=== PATIENT | male | born 1940 | race Caucasian/White ===

== ENCOUNTER 2024-06-11 14:06 | Outpatient (AMB) | payer MEDICARE, SELFPAY ==
--- NOTE | 2024-06-11 14:09 | MHC.PC.OV ---
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 sleep study for cpap machine Emergency Dispatcher Required: No Allergies No Known Allergies Allergy (Verified 06/11/24 14:13) Tobacco use date assessed: 06/11/24 Fall risk assessment: 2 + Falls in past year Last assessed Fall Risk: 06/11/24 Dental Screening Dental Screen Date: 06/11/24 Did you have a dental visit in the last 12 months?: No Did you have a dental problem in the last 6 months where you did not have access to dental care?: No Was dental information given to patient?: Patient declined HPI HPI Comments History of Present Illness Details This is an 83-year-old male with a past medical history of PVD, CVA at age 50 and age 82, status post CABG and stent to the left circumflex artery, CAD, uncontrolled type 2 diabetes, hypertension, hyperlipidemia, sinus bradycardia, anxiety and hypomagnesemia presenting to establish care. He transferred from my practice at [facility]. He is accompanied by his , Angela. Type 2 diabetes-using CGM. Average glucose 152. One low in the past 2 weeks on 06/15 at 59. He didn't have any symptoms and had just eaten so he does not think it was accurate. Glucose readings can sometimes be higher in the evening. Overall blood sugars have been improving since Trulicity was increased. Hemoglobin A1c 6.3% 01/27/2024. He was prescribed Ozempic, but it was too expensive. Currently on metformin, glipizide and Trulicity. Up-to-date eye exam-Dr. Hoff. + Microalbuminuria, + CAD, + PVD. Cardiovascular -followed by Cardiology, Dr. Valdez. Current regimen is aspirin, atorvastatin, Plavix, amlodipine, lisinopril. Beta-isiah discontinued due to bradycardia that was evaluated by Cardiology. Seen by Dr. Langford and scheduled for pacemaker implantation 06/23/2024. He has fatigue and dyspnea on exertion. Cardiology also did a stress test recently. He denies chest pain or leg swelling. 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 He did physical therapy. Anxiety-taking fluoxetine 20 mg daily. Hypomagnesemia seen by Nephrology. Magnesium dosing changed on 02/21/2024 to 3 tablets twice daily because patient was forgetting his noon dose. He is taking the Magnesium 2 tablets in the morning and 1 or 2 in the afternoon or evening. He is wondering if magnesium has improved since blood glucose is better regulated now. ROS: Constitutional: No unexplained weight loss, fever, chills, fatigue or night sweats. Cardiovascular: No chest pain, chest pressure or chest discomfort. No palpitations or pedal edema. Neurologic: No headache, dizziness, syncope Physical exam: Constitutional: Alert, in no distress. Head: Normocephalic. Eyes: Pupils are equal, round and reactive to light. Extraocular muscles intact. Neck: Supple, Full range of motion. No lymphadenopathy. Respiratory: Clear to auscultation. Cardiovascular: S1 S2 regular. No murmur Extremities: Warm and well perfused. No clubbing, cyanosis or edema. [facility] Medical History (Updated 06/11/24 @ 14:41 by Fabienne Leal CMA) Shingles Osteoporosis Arthritis Heart disease Hypercholesteremia HTN (hypertension) Type 2 diabetes mellitus with renal manifestations Thoracic aortic aneurysm Peripheral vascular disease Mixed sleep apnea Microalbuminuria Hypomagnesemia Essential hypertension Pure hypercholesterolemia History of CVA in adulthood Bilateral hip pain Hearing loss Chronic anemia Coronary artery disease Bradycardia Bilateral knee pain Generalized anxiety disorder Surgical History (Updated 06/11/24 @ 10:56 by EVA Romeo) S/P AAA repair using straight graft History of carotid endarterectomy Hx of CABG S/P coronary artery stent placement History of cardiac catheterization History of angioplasty of peripheral vessel Family History (Updated 06/11/24 @ 14:26 by Fabienne Leal CMA) Sister Lung cancer Stroke Brother Stroke Social History (Updated 06/11/24 @ 14:24 by Fabienne Leal CMA) Housing: House Patient Tobacco Use Status: Never used Tobacco e-Cigarette/Vaping Use: Never Used Second Hand Smoke Exposure: No service: Yes Current occupational status: retired Current occupational exposures/hazards: No Cognitive needs: No Hearing needs: Yes Vision needs: Yes Questionnaire PHQ-9 Over the last 2 weeks, how often have you been bothered by any of the following problems? 1. Little interest or pleasure in doing things: not at all 2. Feeling down, depressed, or hopeless: not at all 3. Trouble falling or staying asleep, or sleeping too much: not at all 4. Feeling tired or having little energy: several days 5. Poor appetite or overeating: not at all 6. Feeling bad about yourself - or that you are a failure or have let yourself or your family down: not at all 7. Trouble concentrating on things, such as reading the newspaper or watching television: not at all 8. Moving or speaking so slowly that other people could have noticed. Or the opposite - being so fidgety or restless that you have been moving around a lot more than usual: not at all 9. Thoughts that you would be better off or of hurting yourself in some way: not at all Total score: 1 Depression Screening Interpretation: Negative Depression Screening Done: Yes 58242 - PHQ-9 Billing: Yes Source: Developed by Drs. Tommy Ozuna, Roseanne Bales, Arnold Ramos and colleagues, with an educational lenin from [employer]. Thrive Questionnaire Date Thrive assessed: 06/11/24 I am a: Patient What is your living situation today?: I have a steady place to live Within the past 12 months, did you worry whether your food would run out before you got money to buy more?: Never true Do you have trouble paying for medicines?: No Do you have trouble getting transportation to medical appointments?: No Do you have trouble paying your heating and electricity bill?: No Do you have trouble taking care of your child, family member or friend?: No Do you have trouble with day-to-day activities such as bathing, preparing meals, shopping, managing finances, etc.?: No Are you currently unemployed and looking for a job?: No Are you interested in more education?: No Please select the resources that you would like help with: None Currently or been in a relationship where the following occur: No concerns reported THRIVE Score: 0 AUDIT C Alcohol Use Questionnaire (AUDIT-C) 1. How often do you have a drink containing alcohol?: Monthly or less 2. How many drinks containing alcohol do you have on a typical day when you are drinking?: 3 or 4 3. How often do you have six or more drinks on one occasion?: Weekly Total Score: 5 Physical exam (Primary Care) Vital Signs: Last Vital Signs Temp 97.6 F 06/11/24 14:28 Pulse 46 L 06/11/24 14:28 BP 112/56 L 06/11/24 14:45 Pulse Ox 97 06/11/24 14:28 Oxygen Delivery Method Room Air 06/11/24 14:28 BMI result Body Mass Index 30.3 Tobacco/Smoking Status: Tobacco use Status Tobacco use date assessed 06/11/24 06/11/24 14:31 Patient Tobacco Use Status Never used Tobacco 06/11/24 14:31 e-Cigarette/Vaping Use Never Used 06/11/24 14:31 PHQ-9: PHQ-9 Score PHQ-9: Total score 1 06/11/24 14:37 Depression Screening Interpretation: Negative Thrive Assessment: Date of Thrive Assessment Date Thrive assessed 06/11/24 06/11/24 14:37 Currently or been in a relationship where the following occur: No concerns reported Assessment and Plan Assessment & Plan (1) Type 2 diabetes mellitus with renal manifestations: Code(s): E11.29 - Type 2 diabetes mellitus with other diabetic kidney complication Qualifiers: Diabetes mellitus complication detail: with diabetic microalbuminuria Diabetes mellitus fpc insulin use: without intermediate project manager use Qualified Code(s): E11.29 - Type 2 diabetes mellitus with other diabetic kidney complication; R80.9 - Proteinuria, unspecified (2) Microalbuminuria: Code(s): R80.9 - Proteinuria, unspecified (3) Essential hypertension: Code(s): I10 - Essential (primary) hypertension (4) Pure hypercholesterolemia: Code(s): E78.00 - Pure hypercholesterolemia, unspecified (5) History of CVA in adulthood: Code(s): Z86.73 - Personal history of transient ischemic attack (TIA), and cerebral infarction without residual deficits (6) Coronary artery disease: Code(s): I25.10 - Atherosclerotic heart disease of [place] coronary artery without angina pectoris Qualifiers: Associated angina: without angina Coronary Disease-Associated Artery/Lesion type: [place] artery [place] vs. transplanted heart: [place] heart Qualified Code(s): I25.10 - Atherosclerotic heart disease of [place] coronary artery without angina pectoris (7) Generalized anxiety disorder: Code(s): F41.1 - Generalized anxiety disorder (8) Hypomagnesemia: Code(s): E83.42 - Hypomagnesemia (9) Mixed sleep apnea: Code(s): G47.39 - Other sleep apnea Plan: Type 2 diabetes with renal manifestation Continue current regimen and check labs. If CGM is giving a low reading advised patient to check blood glucose if he is asymptomatic to confirm. If blood glucose is also low treat hypoglycemia. If you experience low blood sugar, treat this by eating a chewable fruit candy like skittles or jelly beans (about 8 pieces), 4 ounces (1/2 cup) of fruit juice (not diet), 1 tablespoon of honey or 3-4 glucose tablets (prescribed). If your blood sugar is under 50, take double the amount of one of the above. Recheck your blood sugar in 15 minutes. Microalbuminuria Continue TEN inhibitor for renal protection. Hypertension Controlled. Continue current regimen. Hyperlipidemia Check lipid profile. LDL goal less than 70. History of CVA in adulthood Modify risk factors. See above. Coronary artery disease, bradycardia Continue current medications Pacemaker implantation scheduled for 06/23/2024. Generalized anxiety disorder Stable. Continue SSRI. Hypomagnesemia Seen by Nephrology. Continue magnesium supplementation. Check magnesium. Mixed sleep apnea He is having another sleep study after surgery. Follow up in 3 months Orders: Orders Lipid Panel Today E11.29 - Type 2 diabetes mellitus with other diabetic kidney complication, E78.00 - Pure hypercholesterolemia, unspecified, E83.42 - Hypomagnesemia, I10 - Essential (primary) hypertension, R80.9 - Proteinuria, unspecified, Z86.73 - Personal history of transient ischemic attack (TIA), and cerebral infarction without residual deficits Basic Metabolic Panel Today E11.29 - Type 2 diabetes mellitus with other diabetic kidney complication, E78.00 - Pure hypercholesterolemia, unspecified, E83.42 - Hypomagnesemia, I10 - Essential (primary) hypertension, R80.9 - Proteinuria, unspecified, Z86.73 - Personal history of transient ischemic attack (TIA), and cerebral infarction without residual deficits Hemoglobin A1c Today E11.29 - Type 2 diabetes mellitus with other diabetic kidney complication, E78.00 - Pure hypercholesterolemia, unspecified, E83.42 - Hypomagnesemia, I10 - Essential (primary) hypertension, R80.9 - Proteinuria, unspecified, Z86.73 - Personal history of transient ischemic attack (TIA), and cerebral infarction without residual deficits Magnesium Today E11.29 - Type 2 diabetes mellitus with other diabetic kidney complication, E78.00 - Pure hypercholesterolemia, unspecified, E83.42 - Hypomagnesemia, I10 - Essential (primary) hypertension, R80.9 - Proteinuria, unspecified, Z86.73 - Personal history of transient ischemic attack (TIA), and cerebral infarction without residual deficits Complete Blood Count no Diff Today I73.9 - Peripheral vascular disease, unspecified Medications: New magnesium chloride 128 mg (2 x 64 mg) PO BID 90 days 360 tabs 1RF glucose take 3-4 tabs orally every 15 minutes PRN; until symptoms of low blood sugar are controlled 30 tabs 0RF hypoglycemia Coding Level of Care Code Est Pt Level 4 (40993) Complex EM visit Add On G2211 Diagnoses Type 2 diabetes mellitus with diabetic microalbuminuria, without long-term current use of insulin E11.29; R80.9 Diabetes mellitus complication detail: with diabetic microalbuminuria Diabetes mellitus intermediate project manager insulin use: without intermediate project manager use Microalbuminuria R80.9 Essential hypertension I10 Pure hypercholesterolemia E78.00 History of CVA in adulthood Z86.73 Coronary artery disease involving [place] coronary artery of [place] heart without angina pectoris I25.10 Associated angina: without angina Coronary Disease-Associated Artery/Lesion type: [place] artery [place] vs. transplanted heart: [place] heart Generalized anxiety disorder F41.1 Hypomagnesemia E83.42 Mixed sleep apnea G47.39
[2024-06-11 14:28] VITALS: BP 96/60; PULSE 46; TEMP 36.4; O2SAT 97; BMI 30.3
[2024-06-11 14:45] VITALS: BP 112/56
== END 2024-06-11 15:06 | disposition home or self-care (01) ==
LOC: HO.HMGFM 14:06
PROVIDERS: PCP Physician Assistant Medical; Visit Provider Physician Assistant Medical
DX: E11.29 Type 2 diabetes mellitus with other diabetic kidney complication (principal); R80.9 Proteinuria, unspecified; I10 Essential (primary) hypertension; E78.00 Pure hypercholesterolemia, unspecified; Z86.73 Personal history of transient ischemic attack (TIA), and cerebral infarction without residual deficits; I25.10 Atherosclerotic heart disease of native coronary artery without angina pectoris; F41.1 Generalized anxiety disorder; E83.42 Hypomagnesemia; G47.39 Other sleep apnea
CPT/HCPCS: 99204; 99214

== ENCOUNTER 2024-06-15 08:05 | Outpatient (REF) | payer BC, SELFPAY ==
[2024-06-15 11:34] LABS: Hematocrit 36.5 % (42.0-52.0); Hemoglobin 12.5 g/dl (14.0-18.0); Mean Corpuscular HGB Conc 34.2 g/dl (31.0-36.0); Mean Corpuscular Hemoglobin 31.8 pg (27.0-33.0); Mean Corpuscular Volume 92.9 fL (80.0-98.0); Mean Platelet Volume 10.9 fL (9.4-12.4); Platelet Count 176 X10*3/uL (160-400); Red Blood Count 3.93 X10*6/uL (4.60-5.80); Red Cell Distribution Width 11.9 % (11.0-16.0); White Blood Count 6.8 X10*3/uL (4.8-10.8)
[2024-06-15 11:40] LABS: Estimated Average Glucose 143 mg/dL; Hemoglobin A1c % 6.6 % (<6.0)
[2024-06-15 11:57] LABS: Prothrombin Time 11.8 SEC (11.1-13.3)
[2024-06-15 12:02] LABS: MANUAL DIFF FLAG NO
[2024-06-15 12:03] LABS: Basophils Absolute Auto 0.1 X10*3/uL (0.0-0.2); Basophils Percent Auto 0.9 % (0-2); Eosinophils Absolute Auto 0.3 X10*3/uL (0.0-0.4); Eosinophils Percent Auto 4.5 % (0-4); Imm Gran Abs Auto 0.02 X10*3/uL (0.00-0.03); Imm Gran Pct Auto 0.3 % (0.0-0.4); Lymphocytes Absolute Auto 1.5 X10*3/uL (1.2-4.9); Lymphocytes Percent Auto 21.5 % (20-40); Monocytes Absolute Auto 0.7 X10*3/uL (0.1-1.2); Neutrophils Absolute Auto 4.2 x10*3/uL (2.0-8.3); Neutrophils Percent Auto 62.8 % (45-73)
[2024-06-15 12:28] LABS: Anion Gap 11 (12-20); Blood Urea Nitrogen 15 mg/dL (9-16); Calcium 9.7 mg/dL (8.4-10.2); Carbon Dioxide 27 mmol/L (22-29); Chloride 107 mmol/L (96-108); Cholesterol 136 mg/dL (<200); Estimated Glomerular Filt Rate > 60; Glucose Random 137 mg/dL (60-115); HDL Cholesterol 55 mg/dL (>40); LDL Cholesterol Calculated 59 mg/dL (<100); Magnesium 1.7 mg/dL (1.6-2.6); Potassium 4.4 mmol/L (3.3-5.1); Sodium 141 mmol/L (135-145); Triglycerides 112 mg/dL (<150)
== END 2024-06-15 08:06 | disposition home or self-care (01) ==
LOC: HO.WFDLDS 08:05
PROVIDERS: Internal Medicine Cardiovascular Disease; Visit Provider Physician Assistant Medical
DX: E11.29 Type 2 diabetes mellitus with other diabetic kidney complication (principal); R80.9 Proteinuria, unspecified; I10 Essential (primary) hypertension; E78.00 Pure hypercholesterolemia, unspecified; Z86.73 Personal history of transient ischemic attack (TIA), and cerebral infarction without residual deficits; E83.42 Hypomagnesemia; I73.9 Peripheral vascular disease, unspecified; I49.5 Sick sinus syndrome
CPT/HCPCS: 36415; 80048; 80061; 83036; 83735; 85025; 85027; 85610

== ENCOUNTER 2024-08-24 10:23 | Outpatient (AMB) | payer BC, SELFPAY ==
--- NOTE | 2024-08-24 10:29 | A.OFFPC_ITS ---
Vital Signs 08/24/24 10:33 08/24/24 10:38 Height 5 ft 5.04 in Weight 188 lb 8 oz BMI 31.3 BP 116/40 L 119/56 L Blood Pressure Location Rt brachial Rt brachial Position Sitting Sitting Respiration 14 Pulse 61 Pulse Source Pulse Oximeter Temp 98.4 F Temp Source Temporal Artery Scan Pulse Oximetry (%) 94 Oxygen Delivery Method Room Air Intake Visit Reasons: 30 minutes complex follow up Intake Note: f/u for pacemaker and blood work orders Allergies No Known Allergies Allergy (Verified 08/24/24 10:30) Tobacco use date assessed: 06/11/24 Dental Screening Dental Screen Date: 06/11/24 HPI HPI Comments History of Present Illness Details This is an 84-year-old male with a past medical history of PVD, CVA at age 50 and age 82, status post CABG and stent to the left circumflex artery, CAD, type 2 diabetes, hypertension, hyperlipidemia, sinus bradycardia, anxiety and hypomagnesemia presenting for follow up. He is accompanied by his , Angela. Type 2 diabetes-using [employer], but he has not been scanning more than once per day usually. Average 14 day glucose 159. Hemoglobin A1c 6.6% 06/15/2024. He was prescribed Ozempic, but it was too expensive. Currently on metformin, glipizide and Trulicity. Up-to-date eye exam-Dr. Hoff. + Microalbuminuria, + CAD, + PVD. Glucose 188 this morning - ate rasinettes last night. He had a few episodes of hypoglycemia in the 60s during the past few months. This is usually in the afternoon when he's doing work outside. Treated by eating something sugary and felt better. Cardiovascular -followed by Cardiology, Dr. Valdez. Current regimen is aspirin, atorvastatin, Plavix, amlodipine, lisinopril. Beta-isiah discontinued due to bradycardia that was evaluated by Cardiology. S/p pacemaker implantation 06/2024. No complications per patient. He denies chest pain or leg swelling. Still fatigued easily. 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 He did physical therapy. Patient had a sleep study done after pacemaker implantation. He has a follow up with sleep Medicine at [facility] in September to review the results. Anxiety-taking fluoxetine 20 mg daily. Hypomagnesemia-Followed by [facility]. Patient takes magnesium chloride 2 x 64 mg tabs twice daily. I pointed out a scaly skin growth next to his right eye. He is unsure how long he has had it. He has been picking at it, and it regrows. He has a history of skin cancer. Patient states he has had Mohs procedure years ago. ROS: Constitutional: No unexplained weight loss, fever, chills or night sweats. Eyes: No vision changes Respiratory: No shortness of breath, cough or sputum production. Cardiovascular: No chest pain, chest pressure or chest discomfort. No palpitations or pedal edema. Gastrointestinal: No anorexia, nausea, vomiting or diarrhea. No abdominal pain or blood in stool. Neurologic: No headache, dizziness, syncope, unilateral weakness Hematologic/Lymphatics: No bleeding or bruising. No painful lymph nodes. Endocrine: No cold or heat intolerance. No polyuria or polydipsia. Physical exam: Constitutional: Alert, in no distress. Head: Normocephalic. Eyes: Pupils are equal, round and reactive to light. Extraocular muscles intact. Neck: Supple, Full range of motion. No lymphadenopathy. Respiratory: Clear to auscultation. Cardiovascular: S1 S2 regular. No murmur Extremities: Warm and well perfused. No clubbing, cyanosis or edema. Skin: 6 mm raised, scaly lesion on right adventism [facility] Medical History (Updated 08/24/24 @ 11:25 by EVA Romeo) Neoplasm of skin Shingles Osteoporosis Arthritis Heart disease Hypercholesteremia HTN (hypertension) Type 2 diabetes mellitus with renal manifestations Thoracic aortic aneurysm Peripheral vascular disease Mixed sleep apnea Microalbuminuria Hypomagnesemia Essential hypertension Pure hypercholesterolemia History of CVA in adulthood Bilateral hip pain Hearing loss Chronic anemia Coronary artery disease Bradycardia Bilateral knee pain Generalized anxiety disorder Surgical History (Updated 06/11/24 @ 10:56 by EVA Romeo) S/P AAA repair using straight graft History of carotid endarterectomy Hx of CABG S/P coronary artery stent placement History of cardiac catheterization History of angioplasty of peripheral vessel Family History (Updated 06/11/24 @ 14:26 by Fabienne Leal CMA) Sister Lung cancer Stroke Brother Stroke Social History (Updated 06/11/24 @ 14:24 by Fabienne Leal CMA) Housing: House Patient Tobacco Use Status: Never used Tobacco e-Cigarette/Vaping Use: Never Used Second Hand Smoke Exposure: No service: Yes Current occupational status: retired Current occupational exposures/hazards: No Cognitive needs: No Hearing needs: Yes Vision needs: Yes Questionnaire Thrive Questionnaire Date Thrive assessed: 06/11/24 Physical exam (Primary Care) Tobacco/Smoking Status: Tobacco use Status Tobacco use date assessed 06/11/24 06/11/24 14:31 Patient Tobacco Use Status Never used Tobacco 06/11/24 14:31 e-Cigarette/Vaping Use Never Used 06/11/24 14:31 Thrive Assessment: Date of Thrive Assessment Date Thrive assessed 06/11/24 06/11/24 14:37 Coding Level of Care Code Est Pt Level 5 (85709) Complex EM visit Add On G2211 Diagnoses Type 2 diabetes mellitus with diabetic microalbuminuria, without long-term current use of insulin E11.29; R80.9 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 transplanted heart: [place] heart Associated angina: without angina Chronic anemia D64.9 Mixed sleep apnea G47.39 Peripheral vascular disease I73.9 Neoplasm of skin D49.2 Time Spent (min) 48 Comment Reviewing chart, direct patient care, completing documentation Assessment & Plan Assessment & Plan (1) Type 2 diabetes mellitus with renal manifestations: Code(s): E11.29 - Type 2 diabetes mellitus with other diabetic kidney complication Category: Medical Qualifiers: Diabetes mellitus intermediate insulin use: without intermediate use Diabetes mellitus complication detail: with diabetic microalbuminuria Qualified Code(s): E11.29 - Type 2 diabetes mellitus with other diabetic kidney complication; R80.9 - Proteinuria, unspecified (2) Hypomagnesemia: Code(s): E83.42 - Hypomagnesemia Category: Medical (3) Essential hypertension: Code(s): I10 - Essential (primary) hypertension Category: Medical (4) Pure hypercholesterolemia: Code(s): E78.00 - Pure hypercholesterolemia, unspecified Category: Medical (5) Coronary artery disease: Code(s): I25.10 - Atherosclerotic heart disease of [place] coronary artery without angina pectoris Category: Medical Qualifiers: Coronary Disease-Associated Artery/Lesion type: [place] artery [place] vs. transplanted heart: [place] heart Associated angina: without angina Qualified Code(s): I25.10 - Atherosclerotic heart disease of [place] coronary artery without angina pectoris (6) Chronic anemia: Code(s): D64.9 - Anemia, unspecified Category: Medical (7) Mixed sleep apnea: Code(s): G47.39 - Other sleep apnea Category: Medical (8) Peripheral vascular disease: Code(s): I73.9 - Peripheral vascular disease, unspecified Category: Medical (9) Neoplasm of skin: Code(s): D49.2 - Neoplasm of unspecified behavior of bone, soft tissue, and skin Category: Medical Plan Type 2 diabetes with renal manifestation Continue current regimen and check labs. If you experience low blood sugar, treat this by eating a chewable fruit candy like skittles or jelly beans (about 8 pieces), 4 ounces (1/2 cup) of fruit juice (not diet), 1 tablespoon of honey or 3-4 glucose tablets (prescribed). If your blood sugar is under 50, take double the amount of one of the above. Recheck your blood sugar in 15 minutes. Microalbuminuria Continue TEN inhibitor for renal protection. Hypertension Controlled. Continue current regimen. Hyperlipidemia LDL at goal of less than 77/20 08/11. Continue atorvastatin 80 mg. History of CVA in adulthood We will continue to treat risk factors. Continue current medications. Coronary artery disease, bradycardia Continue current medications. Hypertension, diabetes and hyperlipidemia controlled. S/p pacemaker implantation. Generalized anxiety disorder Stable. Continue SSRI. Hypomagnesemia Seen by Nephrology. Continue magnesium supplementation. Check magnesium. Mixed sleep apnea Follow up with sleep medicine at [facility] in September. Chronic anemia Repeat CBC. Check iron , ferritin, B12 and folate. Skin neoplasm Referred to [facility]. The patient was instructed to call the office if they do not hear about scheduling the appointment after 2 weeks. Follow up in 3 months Orders: Orders Basic Metabolic Panel 09/15/24 D64.9 - Anemia, unspecified, E11.29 - Type 2 di abetes mellitus with other diabetic kidney complication, E83.42 - Hypomagnesemia, I10 - Essential (primary) hypertension, I73.9 - Peripheral vascular disease, unspecified, R80.9 - Proteinuria, unspecified IRON PROFILE 09/15/24 D64.9 - Anemia, unspecified, E11.29 - Type 2 diabetes mellitus with other diabetic kidney complication, E83.42 - Hypomagnesemia, I10 - Essential (primary) hypertension, I73.9 - Peripheral vascular disease, unspecified, R80.9 - Proteinuria, unspecified TSH reflex Free T4 Today E11.29 - Type 2 diabetes mellitus with other diabetic kidney complication, R80.9 - Proteinuria, unspecified Hemoglobin A1c 09/15/24 D64.9 - Anemia, unspecified, E11.29 - Type 2 diabetes mellitus with other diabetic kidney complication, E11.9 - Type 2 diabetes mellitus without complications, E83.42 - Hypomagnesemia, I10 - Essential (primary) hypertension, I73.9 - Peripheral vascular disease, unspecified, R80.9 - Proteinuria, unspecified Magnesium 09/15/24 D64.9 - Anemia, unspecified, E11.29 - Type 2 diabetes mellitus with other diabetic kidney complication, E83.42 - Hypomagnesemia, I10 - Essential (primary) hypertension, I73.9 - Peripheral vascular disease, unspecified, R80.9 - Proteinuria, unspecified Complete Blood Count Auto Diff 09/15/24 D64.9 - Anemia, unspecified, E11.29 - Type 2 diabetes mellitus with other diabetic kidney complication, E83.42 - Hypomagnesemia, I10 - Essential (primary) hypertension, I73.9 - Peripheral vascular disease, unspecified, R80.9 - Proteinuria, unspecified Ferritin 09/15/24 D64.9 - Anemia, unspecified, E11.29 - Type 2 diabetes mellitus with other diabetic kidney complication, E83.42 - Hypomagnesemia, I10 - Essential (primary) hypertension, I73.9 - Peripheral vascular disease, unspecified, R80.9 - Proteinuria, unspecified Vitamin B12 and Folate 09/15/24 D64.9 - Anemia, unspecified, E11.29 - Type 2 diabetes mellitus with other diabetic kidney complication, E83.42 - Hypomagnesemia, I10 - Essential (primary) hypertension, I73.9 - Peripheral vascular disease, unspecified, R80.9 - Proteinuria, unspecified Referrals Dermatology Referral D49.89 - Neoplasm of unspecified behavior of other specified sites
[2024-08-24 10:33] VITALS: BP 116/40; PULSE 61; RESP 14; TEMP 36.9; O2SAT 94; BMI 31.3
[2024-08-24 10:38] VITALS: BP 119/56
== END 2024-08-24 11:14 | disposition home or self-care (01) ==
PROVIDERS: PCP Physician Assistant Medical; Visit Provider Physician Assistant Medical
DX: E11.29 Type 2 diabetes mellitus with other diabetic kidney complication (principal); I73.9 Peripheral vascular disease, unspecified; R80.9 Proteinuria, unspecified; E83.42 Hypomagnesemia; I10 Essential (primary) hypertension; E78.00 Pure hypercholesterolemia, unspecified; I25.10 Atherosclerotic heart disease of native coronary artery without angina pectoris; D64.9 Anemia, unspecified; G47.39 Other sleep apnea; D49.2 Neoplasm of unspecified behavior of bone, soft tissue, and skin

== ENCOUNTER → 2024-08-24 10:23 | Outpatient (BNVA) | payer BC, SELFPAY | PROVIDERS: PCP Physician Assistant Medical; Visit Provider Physician Assistant Medical ==

== ENCOUNTER 2024-09-22 11:11 | Outpatient (REF) | payer BC, SELFPAY ==
[2024-09-22 14:23] LABS: MANUAL DIFF FLAG NO
[2024-09-22 14:40] LABS: Basophils Absolute Auto 0.1 X10*3/uL (0.0-0.2); Basophils Percent Auto 0.9 % (0-2); Eosinophils Absolute Auto 0.3 X10*3/uL (0.0-0.4); Eosinophils Percent Auto 4.3 % (0-4); Hemoglobin 12.2 g/dl (14.0-18.0); Imm Gran Abs Auto 0.01 X10*3/uL (0.00-0.03); Imm Gran Pct Auto 0.2 % (0.0-0.4); Lymphocytes Absolute Auto 1.3 X10*3/uL (1.2-4.9); Lymphocytes Percent Auto 21.7 % (20-40); Mean Corpuscular HGB Conc 34.9 g/dl (31.0-36.0); Mean Corpuscular Hemoglobin 32.3 pg (27.0-33.0); Mean Corpuscular Volume 92.6 fL (80.0-98.0); Mean Platelet Volume 10.7 fL (9.4-12.4); Monocytes Absolute Auto 0.7 X10*3/uL (0.1-1.2); Neutrophils Absolute Auto 3.5 x10*3/uL (2.0-8.3); Neutrophils Percent Auto 60.9 % (45-73); Platelet Count 147 X10*3/uL (160-400); Red Blood Count 3.78 X10*6/uL (4.60-5.80); Red Cell Distribution Width 12.4 % (11.0-16.0); White Blood Count 5.8 X10*3/uL (4.8-10.8)
[2024-09-22 14:52] LABS: Estimated Average Glucose 140 mg/dL; Hemoglobin A1C 150.8855 umol/L; Hemoglobin A1c % 6.5 % (<6.0); Total Hemoglobin (HGBA1C) 3207.3268 umol/L
[2024-09-22 15:02] LABS: Anion Gap 14 (12-20); Blood Urea Nitrogen 20 mg/dL (9-16); Calcium 9.8 mg/dL (8.4-10.2); Carbon Dioxide 23 mmol/L (22-29); Chloride 109 mmol/L (96-108); Estimated Glomerular Filt Rate > 60; Magnesium 1.5 mg/dL (1.6-2.6); Potassium 4.5 mmol/L (3.3-5.1); Sodium 141 mmol/L (135-145)
[2024-09-22 15:30] LABS: Folate 12.6 ng/mL (> or = 4.0); Vitamin B12 605 pg/mL (200-900)
[2024-09-22 15:39] LABS: Creatinine Urine 124.11 mg/dL; Microalbum/Creatinine Ratio Ur 61.2 ug/mg cr (<30); Total Protein Urine Random 20 mg/dL (<12)
[2024-09-22 19:43] LABS: Iron 89 mcg/dL (45-160); Percent Iron Saturation 28 % (15-50); Total Iron Binding Capacity 316 mcg/dL (228-428); Unsaturated Iron Binding 227 ug/dL
[2024-09-22 20:03] LABS: Ferritin 25 ng/mL (20-250); TSH reflex Free T4 2.46 uIU/mL (0.32-4.0)
[2024-09-27 12:18] LABS: VITAMIN D (1,25 OH) D3 24 pg/mL; Vit D (1,25-Dihydroxy) Total 24 pg/mL (18-72); Vitamin D (1,25 OH) D2 <8 pg/mL
== END 2024-09-22 11:12 | disposition home or self-care (01) ==
LOC: HO.WFDLDS 11:11
PROVIDERS: Internal Medicine Nephrology; Visit Provider Physician Assistant Medical
DX: E11.29 Type 2 diabetes mellitus with other diabetic kidney complication (principal); R80.9 Proteinuria, unspecified; I73.9 Peripheral vascular disease, unspecified; E83.42 Hypomagnesemia; I10 Essential (primary) hypertension; D64.9 Anemia, unspecified; E11.9 Type 2 diabetes mellitus without complications
CPT/HCPCS: 36415; 80051; 82043; 82310; 82565; 82570; 82607; 82652; 82728; 82746; 83036; 83540; 83735; 83970; 84156; 84443; 84520; 85025

== ENCOUNTER 2024-11-26 11:39 | Outpatient (AMB) | payer BC, SELFPAY ==
--- NOTE | 2024-11-26 11:41 | MHC.PC.OV ---
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 He is accompanied by his , Angela. Type 2 diabetes-hemoglobin A1c 6.5% in [id number]. using [employer], but he has not been scanning it frequently, and he does not have it with him today. He was prescribed Ozempic, but it was too expensive. Currently on metformin, glipizide and Trulicity. Up-to-date eye exam-Dr. Hoff. + Microalbuminuria, + CAD, + PVD. Denies recent hypoglycemia. Cardiovascular -followed by Cardiology, Dr. Valdez. He just saw him, and there no changes to his current regimen. 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 Current regimen is aspirin, atorvastatin, Plavix, amlodipine, lisinopril. Beta-isiah discontinued due to bradycardia that was evaluated by Cardiology. S/p pacemaker implantation 06/2024. No complications per patient. He denies chest pain or leg swelling. He is fatigued easily. 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 He did physical therapy. Patient had a sleep study done after pacemaker implantation. He was diagnosed with obstructive and central sleep apnea. He is seeing sleep medicine, and they are starting him on a CPAP soon. Anxiety-taking fluoxetine 20 mg daily. Hypomagnesemia-Followed by [facility]. Patient takes magnesium chloride 2 x 64 mg tabs twice daily. He has Mohs surgery upcoming with [facility]. Mild anemia and mild thrombocytopenia on lastlabs. He is going to have this repeated with his blood work in December. Denies bleeding or bruising. ROS: Constitutional: No unexplained weight loss, fever, chills or night sweats. Eyes: No vision changes Respiratory: No shortness of breath, cough or sputum production. Cardiovascular: No chest pain, chest pressure or chest discomfort. No palpitations or pedal edema. Gastrointestinal: No anorexia, nausea, vomiting or diarrhea. No abdominal pain or blood in stool. Neurologic: No headache, dizziness, syncope, unilateral weakness Hematologic/Lymphatics: No bleeding or bruising. No painful lymph nodes. Endocrine: No cold or heat intolerance. No polyuria or polydipsia. Physical exam: Constitutional: Alert, in no distress. Head: Normocephalic. Eyes: Pupils are equal, round and reactive to light. Extraocular muscles intact. Neck: Supple, Full range of motion. No lymphadenopathy. Respiratory: Clear to auscultation. Cardiovascular: S1 S2 regular. No murmur Extremities: Warm and well perfused. No clubbing, cyanosis or edema. [facility] Medical History (Updated 08/24/24 @ 11:25 by EVA Romeo) Neoplasm of skin Shingles Osteoporosis Arthritis Heart disease Hypercholesteremia HTN (hypertension) Type 2 diabetes mellitus with renal manifestations Thoracic aortic aneurysm Peripheral vascular disease Mixed sleep apnea Microalbuminuria Hypomagnesemia Essential hypertension Pure hypercholesterolemia History of CVA in adulthood Bilateral hip pain Hearing loss Chronic anemia Coronary artery disease Bradycardia Bilateral knee pain Generalized anxiety disorder Surgical History (Updated 06/11/24 @ 10:56 by EVA Romeo) S/P AAA repair using straight graft History of carotid endarterectomy Hx of CABG S/P coronary artery stent placement History of cardiac catheterization History of angioplasty of peripheral vessel Family History (Updated 06/11/24 @ 14:26 by Fabienne Leal CMA) Sister Lung cancer Stroke Brother Stroke Social History (Updated 06/11/24 @ 14:24 by Fabienne Leal CMA) Housing: House Patient Tobacco Use Status: Never used Tobacco e-Cigarette/Vaping Use: Never Used Second Hand Smoke Exposure: No service: Yes Current occupational status: retired Current occupational exposures/hazards: No Cognitive needs: No Hearing needs: Yes Vision needs: Yes Questionnaire PHQ-9 Over the last 2 weeks, how often have you been bothered by any of the following problems? 1. Little interest or pleasure in doing things: not at all 2. Feeling down, depressed, or hopeless: not at all 3. Trouble falling or staying asleep, or sleeping too much: not at all 4. Feeling tired or having little energy: not at all 5. Poor appetite or overeating: not at all 6. Feeling bad about yourself - or that you are a failure or have let yourself or your family down: not at all 7. Trouble concentrating on things, such as reading the newspaper or watching television: not at all 8. Moving or speaking so slowly that other people could have noticed. Or the opposite - being so fidgety or restless that you have been moving around a lot more than usual: not at all 9. Thoughts that you would be better off or of hurting yourself in some way: not at all Total score: 0 84944 - PHQ-9 Billing: Yes Source: Developed by Drs. Tommy Ozuna, Roseanne Bales, Arnold Ramos and colleagues, with an educational lenin from [employer]. Thrive Questionnaire Date Thrive assessed: 11/26/24 I am a: Patient What is your living situation today?: I have a steady place to live Within the past 12 months, did the food you bought not last and you didn't have the money to get more?: Never true Within the past 12 months, did you worry whether your food would run out before you got money to buy more?: Never true Do you have trouble paying for medicines?: No Do you have trouble getting transportation to medical appointments?: No Do you have trouble paying your heating and electricity bill?: No Do you have trouble taking care of your child, family member or friend?: No Do you have trouble with day-to-day activities such as bathing, preparing meals, shopping, managing finances, etc.?: No Are you currently unemployed and looking for a job?: No Are you interested in more education?: No Please select the resources that you would like help with: None Currently or been in a relationship where the following occur: No concerns reported THRIVE Score: 0 AUDIT C Alcohol Use Questionnaire (AUDIT-C) 1. How often do you have a drink containing alcohol?: 2-4 times a month 2. How many drinks containing alcohol do you have on a typical day when you are drinking?: 1 or 2 3. How often do you have six or more drinks on one occasion?: Never Total Score: 2 DUNCAN-7 AMB Questionnaire DUNCAN-7 Date DUNCAN - 7 assessed: 11/26/24 Feeling nervous, anxious, or on edge: 0 = Not at all Not being able to stop or control worryin = Several days Worrying too much about different things: 1 = Several days Trouble relaxin = Several days Being so restless that it is hard to sit still: 0 = Not at all Becoming easily annoyed or irritable: 0 = Not at all Feeling afraid as if something awful might happen: 0 = Not at all Total DUNCAN-7 score (0-4 normal; 5-9 mild; 10-14 moderate; 15-21 severe): 3 Source: Developed by Drs. Tommy Ozuna, Roseanne Bales, Arnold Ramos and colleagues, with an educational lenin from [employer]. DUNCAN-7 Assessment Billing DUNCAN-7 Assessment Tool: DUNCAN-7 Assessment 75481 Physical exam (Primary Care) Vital Signs: Last Vital Signs Pulse 87 11/26/24 11:44 Resp 13 11/26/24 11:44 BP 144/76 H 11/26/24 11:44 Pulse Ox 93 11/26/24 11:44 Oxygen Delivery Method Room Air 11/26/24 11:44 BMI result Body Mass Index 32.4 Tobacco/Smoking Status: Tobacco use Status Tobacco use date assessed 06/11/24 11/26/24 11:41 Patient Tobacco Use Status Never used Tobacco 11/26/24 11:41 e-Cigarette/Vaping Use Never Used 11/26/24 11:41 PHQ-9: PHQ-9 Score PHQ-9: Total score 0 11/26/24 11:57 Thrive Assessment: Date of Thrive Assessment Date Thrive assessed 11/26/24 11/26/24 11:41 Currently or been in a relationship where the following occur: No concerns reported Coding Level of Care Code Est Pt Level 4 (64797) Complex EM visit Add On G2211 Diagnoses Type 2 diabetes mellitus with diabetic microalbuminuria, without long-term current use of insulin E11.29; R80.9 Diabetes mellitus complication detail: with diabetic microalbuminuria Diabetes mellitus senior care insulin use: without long term acute care registered nurse use Hypomagnesemia E83.42 Essential hypertension I10 Pure hypercholesterolemia E78.00 Coronary artery disease involving [place] coronary artery of [place] heart without angina pectoris I25.10 Associated angina: without angina Coronary Disease-Associated Artery/Lesion type: [place] artery [place] vs. transplanted heart: [place] heart Chronic anemia D64.9 Mixed sleep apnea G47.39 Peripheral vascular disease I73.9 Neoplasm of skin D49.2 Additional Codes DUNCAN-7 Assessment Billing - DUNCAN-7 Assessment Tool: DUNCNA-7 Assessment 08199 ([id number]) PHQ-9 - 17178 - PHQ-9 Billing: Yes ([id number]) Assessment & Plan Assessment & Plan (1) Type 2 diabetes mellitus with renal manifestations: Code(s): E11.29 - Type 2 diabetes mellitus with other diabetic kidney complication Category: Medical Qualifiers: Diabetes mellitus complication detail: with diabetic microalbuminuria Diabetes mellitus long term acute care registered nurse insulin use: without senior care use Qualified Code(s): E11.29 - Type 2 diabetes mellitus with other diabetic kidney complication; R80.9 - Proteinuria, unspecified (2) Hypomagnesemia: Code(s): E83.42 - Hypomagnesemia Category: Medical (3) Essential hypertension: Code(s): I10 - Essential (primary) hypertension Category: Medical (4) Pure hypercholesterolemia: Code(s): E78.00 - Pure hypercholesterolemia, unspecified Category: Medical (5) Coronary artery disease: Code(s): I25.10 - Atherosclerotic heart disease of [place] coronary artery without angina pectoris Category: Medical Qualifiers: Associated angina: without angina Coronary Disease-Associated Artery/Lesion type: [place] artery [place] vs. transplanted heart: [place] heart Qualified Code(s): I25.10 - Atherosclerotic heart disease of [place] coronary artery without angina pectoris (6) Chronic anemia: Code(s): D64.9 - Anemia, unspecified Category: Medical (7) Mixed sleep apnea: Code(s): G47.39 - Other sleep apnea Category: Medical (8) Peripheral vascular disease: Code(s): I73.9 - Peripheral vascular disease, unspecified Category: Medical (9) Neoplasm of skin: Code(s): D49.2 - Neoplasm of unspecified behavior of bone, soft tissue, and skin Category: Medical Plan Type 2 diabetes with renal manifestation He will return for blood work in December. Continue current medications. If you experience low blood sugar, treat this by eating a chewable fruit candy like skittles or jelly beans (about 8 pieces), 4 ounces (1/2 cup) of fruit juice (not diet), 1 tablespoon of honey or 3-4 glucose tablets (prescribed). If your blood sugar is under 50, take double the amount of one of the above. Recheck your blood sugar in 15 minutes. Microalbuminuria Continue TEN inhibitor for renal protection. Hypertension Continue current regimen. Hyperlipidemia LDL at goal of less than 70. Continue atorvastatin 80 mg. History of CVA in adulthood We will continue to treat risk factors. Continue current medications. Coronary artery disease, bradycardia Continue current medications. S/p pacemaker implantation. Generalized anxiety disorder Stable. Continue SSRI. Hypomagnesemia Seen by Nephrology. Continue magnesium supplementation. Check magnesium. Mixed sleep apnea Continue management per sleep medicine. Chronic anemia, thrombocytopenia Repeat labs in 1 month Skin cancer Followed by [facility]. Follow up in 4 months. Orders: Orders Hemoglobin A1c Today E11.9 - Type 2 diabetes mellitus without complications
[2024-11-26 11:44] VITALS: BP 144/76; PULSE 87; RESP 13; O2SAT 93; BMI 32.4
== END 2024-11-26 12:22 | disposition home or self-care (01) ==
PROVIDERS: PCP Physician Assistant Medical; Visit Provider Physician Assistant Medical
DX: E83.42 Hypomagnesemia (principal); E11.29 Type 2 diabetes mellitus with other diabetic kidney complication; I73.9 Peripheral vascular disease, unspecified; R80.9 Proteinuria, unspecified; I10 Essential (primary) hypertension; E78.00 Pure hypercholesterolemia, unspecified; I25.10 Atherosclerotic heart disease of native coronary artery without angina pectoris; D64.9 Anemia, unspecified; G47.39 Other sleep apnea; D49.2 Neoplasm of unspecified behavior of bone, soft tissue, and skin

== ENCOUNTER → 2024-11-26 11:39 | Outpatient (BNVA) | payer BC, SELFPAY | PROVIDERS: PCP Physician Assistant Medical; Visit Provider Physician Assistant Medical | DX: E11.29 Type 2 diabetes mellitus with other diabetic kidney complication (principal); R80.9 Proteinuria, unspecified; E83.42 Hypomagnesemia; I10 Essential (primary) hypertension; E78.00 Pure hypercholesterolemia, unspecified; I25.10 Atherosclerotic heart disease of native coronary artery without angina pectoris; D64.9 Anemia, unspecified; G47.39 Other sleep apnea; I73.9 Peripheral vascular disease, unspecified; D49.2 Neoplasm of unspecified behavior of bone, soft tissue, and skin; F41.1 Generalized anxiety disorder; Z86.73 Personal history of transient ischemic attack (TIA), and cerebral infarction without residual deficits; Z79.899 Other long term (current) drug therapy; Z95.0 Presence of cardiac pacemaker | CPT/HCPCS: 96127 ==

== ENCOUNTER 2025-01-07 11:43 | Outpatient (REF) | payer BC, SELFPAY ==
--- OUTSIDE RECORDS SUMMARY | 2025-01-07 12:57 | XMS_ITS | Clinical Summary ---
Author Organization [facility] Facility Address [address] [address] Care Team Providers Care Batch Analyst Name Role Phone Maria Esther Moon MD Primary Care Provider [phone] Allergies No known active allergies Medications amLODIPine (NORVASC) 5 MG tablet Take 5 mg by mouth 1 (one) time daily 30 minutes after same meal 07/11/2023 Active aspirin (ST SADIE) 81 MG EC tablet Take 81 mg by mouth 04/04/2023 Active atorvastatin (LIPITOR) 80 MG tablet Take 80 mg by mouth 1 (one) time daily 30 minutes after same meal 07/06/2023 Active clopidogrel (PLAVIX) 75 MG tablet Take 75 mg by mouth 1 (one) time daily 30 minutes after same meal 07/06/2023 Active Dulaglutide 1.5 MG/0.5ML solution pen-injector Inject 1.5 Pens under the skin 1 (one) time daily 30 minutes after same meal 08/20/2023 Active FLUoxetine (PROzac) 20 MG capsule Take 20 mg by mouth 1 (one) time daily 30 minutes after same meal 07/06/2023 Active glipiZIDE (GLUCOTROL XL) 10 MG 24 hr tablet Take 10 mg by mouth 1 (one) time daily 30 minutes after same meal 15 mg in AM 08/23/2023 Active lisinopril 40 MG tablet Take 40 mg by mouth 1 (one) time daily 30 minutes after same meal 08/26/2023 Active Slow Magnesium/Calci um 70-117 MG tablet delayed-release Take 2 tablets by mouth in the morning and 2 tablets in the evening. 08/06/2023 Active metFORMIN XR (GLUCOPHAGE-XR) 500 MG 24 hr tablet Take 1,000 mg by mouth 1 (one) time daily 30 minutes after same meal 07/06/2023 Active b complex vitamins capsule Take 1 capsule by mouth 1 (one) time each day Active Active Problems Problem Noted Date Diagnosed Date Chronic kidney disease, stage 2 (mild) Chronic anemia 09/06/2023 09/06/2023 Hypomagnesemia 09/06/2023 09/06/2023 Proteinuria 09/06/2023 09/06/2023 Abdominal aortic aneurysm 04/13/20102022 Benign essential hypertension 01/01/2006 Type 2 diabetes mellitus 01/01/2006 023 Overview (09/06/2023): Last Assessment & Plan: Diabetes Partnership-Pt has improved blood sugars when he is compliant with his medications. He is testing sugars. One episode of hypoglycemia. See note 07/02/12 Resolved Problems Problem Noted Date Diagnosed Date Resolved Date Aneurysm of thoracic aorta 09/06/2023 09/06/2023 1 Bradycardia 09/06/2023 09/06/2023 09/06/2023 Coronary arteriosclerosis 09/06/2023 09/06/2023 Generalized anxiety disorder 09/06/2023 09/06/2023 09/06/2023 Hearing loss 09/06/2023 09/06/2023 09/06/2023 History of cerebrovascular accident 09/06/202309/0609/06/2023 Hyperlipidemia 09/06/2023 09/06/2023 09/06/2023 Hip pain 09/06/2023 09/06/2023 09/06/2023 Platelet count below reference range 09/06/2023 1009/06/2023 Uncontrolled type 2 diabetes mellitus 09/06/2023 09/06/2023 Overview (08/18/2024): Replacing diagnoses that were inactivated after the 08/18/24 Regulatory Import Cerebrovascular accident 09/06/2023 09/06/2023 Dupuytren's contracture 08/02/2015 09/06/2023 10 Overview (09/06/2023): S/p fasciectomy of left palm and ring finger 10/03/15 Dr. Zion Silva Depressive disorder 11/19/2012 09/06/2023 09/06/20 Peripheral vascular disease 04/13/2010 09/06/2023 09/06/2023 Overview (09/06/2023): S/p right common iliac balloon angioplasty 05/18/2015 09/13/2014 lower extremity arterial with patent stent. 50% stenosis of both RCFA and LCFA Contact dermatitis and other eczema, unspecified cause 12/15/2008 09/06/2023 09/06/2023 Benign neoplasm of rectum and anal canal 06/18/2008 09/06/2023 09/06/2023 Overview (09/06/2023): Hyperplastic rectal polyp at flexible sigmoidoscopy 01/18/2006. Consider flexible sigmoidoscopy or colonoscopy 2010. Acute, but ill-defined, cere brovascular disease 01/01/2006 09/06/2023 09/06/2023 Atrial fibrillation 01/01/2006 09/06/2023 09/06/20 23 Overweight 01/01/2006 09/06/2023 09/06/2023 Pure hypercholesterolemia 01/01/2006 09/06/2023 Stenosis of artery 01/01/2006 09/06/2023 3 Immunizations Name Administration Dates Next Due Influenza Split High Dose Pr eservative Free IM 07/31/2019,09/12/2018,09/16/2017,08/29,08/02/2015 Influenza, Unspecified 09/05/2022,2019,07/31/2019,09/12,09/16/2017,08/29/2016,08/02/2015 ,11/02/2014,2013,08/20/2012,11/0 06/2011,09/14/2008,10/13/2007, 6,09/20/2005 Moderna SARS-COV-2 10/26/2021 Pfizer SARS-COV-2 01/15/2021,12/25/2020 Pneumococcal Conjugate 13-Valent 05/25/2015 Pneumococcal Polysaccharide 03/12/2017, 5,02/15/2000 Td 04/13/2018,09/25/2011,02/15/2000 Td, Unspecified 04/13/2018,09/25/2011,02/15/2000 Tdap 08/26/2014 Social History Tobacco Use Types Packs/Day Years Used Date Smoking Tobacco: Never Assessed Sex and Gender Information Value Date Recorded Sex Assigned at Not on file Legal Sex Male 1:33 PM EDT Gender Identity Not on file Sexual Orientation Not on file Last Filed Vital Signs Vital Sign Reading Time Taken Comments Blood Pressure 126/70 08/20/2024 10:50 AM EDT Pulse 86 08/20/2024 10:50 AM EDT Temperature - - Respiratory Rate - - Oxygen Saturation 95% 02/21/2024 10: 51 AM EDT Inhaled Oxygen Concentration - - Weight 85.6 kg (188 lb 12.8 oz) 024 10:50 AM EDT Height - - Body Mass Index - - Plan of Treatment Upcoming Encounters Date Type Department Care Team (Late st Contact Info) Description 06/21/2025 11:00 AM EDT Office Visit [facility] [address] [id number] Joyce Pantoja ARNP [address] [phone] Health Maintenance Due Date Last Done Comments Diabetes: Hemoglobin A1C 09/06/2023 Diabetes: Ophthalmology Exam 09/06/2023 07/10/2011, 06/16/2007 Diabetes: Pedal Pulse Checked 09/06/2023 Diabetes: Sensory Foot Exam 09/06/2023 Diabetes: Visual Foot Exam 09/06/2023 Influenza Vaccine (#1) 2024 2, 08/24/2020, 07/31/2019, Additional history exists Pneumococcal Vaccine: 65+ Years Completed 03/12/2017, 05/25/2015, 05/10/2005, Additional history exists Hepatitis B Vaccine Aged Out No longe r eligible based on patient's age to complete this topic Insurance [facility] Care Teams Batch Analyst Relationship Specialty Start Date End Date Maria Esther Moon MD [address] [place] [address] PCP - General Internal Medicine 08/20/24
[2025-01-07 14:12] LABS: MANUAL DIFF FLAG NO
[2025-01-07 14:20] LABS: Basophils Absolute Auto 0.1 X10*3/uL (0.0-0.2); Basophils Percent Auto 0.8 % (0-2); Eosinophils Absolute Auto 0.3 X10*3/uL (0.0-0.4); Eosinophils Percent Auto 4.2 % (0-4); Hematocrit 36.3 % (42.0-52.0); Hemoglobin 12.5 g/dl (14.0-18.0); Imm Gran Abs Auto 0.02 X10*3/uL (0.00-0.03); Imm Gran Pct Auto 0.3 % (0.0-0.4); Lymphocytes Absolute Auto 1.5 X10*3/uL (1.2-4.9); Lymphocytes Percent Auto 18.8 % (20-40); Mean Corpuscular HGB Conc 34.4 g/dl (31.0-36.0); Mean Corpuscular Volume 92.8 fL (80.0-98.0); Mean Platelet Volume 10.9 fL (9.4-12.4); Monocytes Absolute Auto 0.6 X10*3/uL (0.1-1.2); Monocytes Percent Auto 8.2 % (2-11); Neutrophils Absolute Auto 5.3 x10*3/uL (2.0-8.3); Neutrophils Percent Auto 67.7 % (45-73); Platelet Count 170 X10*3/uL (160-400); Red Blood Count 3.91 X10*6/uL (4.60-5.80); Red Cell Distribution Width 12.1 % (11.0-16.0); White Blood Count 7.8 X10*3/uL (4.8-10.8)
[2025-01-07 14:25] LABS: Estimated Average Glucose 146 mg/dL; Hemoglobin A1C 165.3514 umol/L; Hemoglobin A1c % 6.7 % (<6.0)
[2025-01-07 14:32] LABS: Anion Gap 14 (12-20); Blood Urea Nitrogen 20 mg/dL (9-16); Calcium 9.5 mg/dL (8.4-10.2); Carbon Dioxide 23 mmol/L (22-29); Chloride 108 mmol/L (96-108); Estimated Glomerular Filt Rate > 60; Glucose Random 173 mg/dL (60-115); Iron 105 mcg/dL (45-160); Magnesium 1.5 mg/dL (1.6-2.6); Percent Iron Saturation 34 % (15-50); Potassium 4.6 mmol/L (3.3-5.1); Sodium 140 mmol/L (135-145); Total Iron Binding Capacity 311 mcg/dL (228-428); Unsaturated Iron Binding 206 ug/dL
[2025-01-07 14:55] LABS: Ferritin 39 ng/mL (20-250); TSH reflex Free T4 1.97 uIU/mL (0.32-4.0)
== END 2025-01-07 11:44 | disposition home or self-care (01) ==
LOC: HO.WFDLDS 11:43
PROVIDERS: Visit Provider Physician Assistant Medical
DX: E11.29 Type 2 diabetes mellitus with other diabetic kidney complication (principal); R80.9 Proteinuria, unspecified; I73.9 Peripheral vascular disease, unspecified; E83.42 Hypomagnesemia; I10 Essential (primary) hypertension; D64.9 Anemia, unspecified; E11.9 Type 2 diabetes mellitus without complications
CPT/HCPCS: 36415; 80048; 82728; 83036; 83540; 83735; 84443; 85025

== ENCOUNTER 2025-03-29 11:30 | Outpatient (AMB) | payer BC, SELFPAY ==
--- NOTE | 2025-03-29 11:50 | A.OFFPC_ITS ---
Vital Signs 03/29/25 11:59 Height 5 ft 5 in Weight 195 lb 6 oz BMI 32.5 BP 120/62 Blood Pressure Location Rt brachial Position Sitting Pulse 62 Pulse Source Pulse Oximeter Temp 97.7 F Temp Source Temporal Artery Scan Pulse Oximetry (%) 95 Oxygen Delivery Method Room Air Oxygen Flow Rate 97.7 Intake Visit Reasons: Type II diabetes Intake Note: Israel presents in the office today for his Type II Diabetes. Allergies No Known Allergies Allergy (Verified 03/29/25 11:52) Medication List - Last Reconciled 03/29/25 by EVA Romeo acetaminophen ER (Tylenol Arthritis Pain) 650 mg PO Q12H amlodipine 5 mg PO DAILY aspirin (Adult Low Dose Aspirin) 81 mg PO DAILY atorvastatin 80 mg PO DAILY blood-glucose sensor (AppSling[employer]le Ziggy 3 Plus Sensor device) Apply 1 new sensor every 15 days as directed to monitor blood glucose continuously. blood-glucose,gas station cashier,cont (FreeStyle Ziggy 3 [place]) Use daily to monitor blood glucose levels continuously. clopidogrel 75 mg PO DAILY dulaglutide (Trulicity) 3 mg (0.5 mL) subcut QWEEK fluoxetine 20 mg PO DAILY glipizide ER 5 mg PO DAILY glipizide ER 10 mg PO DAILY glucose take 3-4 tabs orally every 15 minutes PRN; until symptoms of low blood sugar are controlled lisinopril 40 mg PO DAILY magnesium chloride 128 mg (2 x 64 mg) PO BID 90 days metformin ER 1,000 mg PO BID vitamin B complex 1 tab PO DAILY Tobacco use date assessed: 03/29/25 Fall risk assessment: No Falls in past year Last assessed Fall Risk: 03/29/25 Dental Screening Dental Screen Date: 03/29/25 Did you have a dental visit in the last 12 months?: Yes Did you have a dental problem in the last 6 months where you did not have access to dental care?: No Was dental information given to patient?: Patient has dentist HPI HPI Comments History of Present Illness Details This is an 84-year-old male with a past medical history of PVD, CVA at age 50 and age 82, status post CABG and stent to the left circumflex artery, CAD, type 2 diabetes, hypertension, hyperlipidemia, 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 He is accompanied by his , Angela. Type 2 diabetes-hemoglobin A1c 7.3%. Using libre2, but he has not been scanning it frequently, and he does not have it with him today. He was prescribed Ozempic, but it was too expensive. Currently on metformin, glipizide and Trulicity. Up-to-date eye exam-Dr. Hoff. + Microalbuminuria, + CAD, + PVD. Denies hypoglycemic episodes. He has been eating more sugary foods and desserts. Cardiovascular -previously followed by Cardiology, Dr. Valdez. He is transferring to another provider at the practice this Summer because his provider left. Current regimen is aspirin, atorvastatin, Plavix, amlodipine, lisinopril. Beta-isiah discontinued due to bradycardia that was evaluated by Cardiology. S/p pacemaker implantation 06/2024. His EP is Dr. Carvajal now. No complications per patient. He denies chest pain or leg swelling. He is fatigued easily. He will see Dr. Kirkpatrick in April for vascular follow up. 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 He did physical therapy. Patient had a sleep study done after pacemaker implantation. He was diagnosed with obstructive and central sleep apnea. He is followed by sleep medicine,, and they started a CPAP. He got a rash on his nose, and he stopped using it. He is not interested in pursuing any further treatment. Anxiety-taking fluoxetine 20 mg daily. Hypomagnesemia-Followed by [facility]. Patient takes magnesium chloride 2 x 64 mg tabs twice daily. Has a history of skin cancer followed by [facility]. Thrombocytopenia resolved on his recent labs. He had mild anemia which also improved. Denies bleeding or bruising. He has never had a colonoscopy, but he did have a Cologuard tests within the last few years. ROS: Constitutional: No unexplained weight loss, fever, chills or night sweats. Eyes: No vision changes Respiratory: No shortness of breath, cough or sputum production. Cardiovascular: No chest pain, chest pressure or chest discomfort. No palpitations or pedal edema. Gastrointestinal: No anorexia, nausea, vomiting or diarrhea. No abdominal pain or blood in stool. Neurologic: No headache, dizziness, syncope, unilateral weakness Hematologic/Lymphatics: No bleeding or bruising. No painful lymph nodes. Endocrine: No cold or heat intolerance. No polyuria or polydipsia. Physical exam: Constitutional: Alert, in no distress. Head: Normocephalic. Eyes: Pupils are equal, round and reactive to light. Extraocular muscles intact. Neck: Supple, Full range of motion. No lymphadenopathy. Respiratory: Clear to auscultation. Cardiovascular: S1 S2 regular. No murmur Extremities: Warm and well perfused. No clubbing, cyanosis or edema. [facility] Medical History (Updated 08/24/24 @ 11:25 by EVA Romeo) Neoplasm of skin Shingles Osteoporosis Arthritis Heart disease Hypercholesteremia HTN (hypertension) Type 2 diabetes mellitus with renal manifestations Thoracic aortic aneurysm Peripheral vascular disease Mixed sleep apnea Microalbuminuria Hypomagnesemia Essential hypertension Pure hypercholesterolemia History of CVA in adulthood Bilateral hip pain Hearing loss Chronic anemia Coronary artery disease Bradycardia Bilateral knee pain Generalized anxiety disorder Surgical History (Updated 06/11/24 @ 10:56 by EVA Romeo) S/P AAA repair using straight graft History of carotid endarterectomy Hx of CABG S/P coronary artery stent placement History of cardiac catheterization History of angioplasty of peripheral vessel Family History Sister Lung cancer Stroke Brother Stroke Social History (Updated 03/29/25 @ 11:56 by Riddhi Rome MA) Housing: House Alcohol intake: current Patient Tobacco Use Status: Never used Tobacco e-Cigarette/Vaping Use: Never Used Second Hand Smoke Exposure: No service: Yes Current occupational status: retired Current occupational exposures/hazards: No Cognitive needs: No Hearing needs: Yes Vision needs: Yes Questionnaire PHQ-9 Over the last 2 weeks, how often have you been bothered by any of the following problems? 1. Little interest or pleasure in doing things: not at all 2. Feeling down, depressed, or hopeless: not at all 3. Trouble falling or staying asleep, or sleeping too much: not at all 4. Feeling tired or having little energy: several days 5. Poor appetite or overeating: not at all 6. Feeling bad about yourself - or that you are a failure or have let yourself or your family down: not at all 7. Trouble concentrating on things, such as reading the newspaper or watching television: not at all 8. Moving or speaking so slowly that other people could have noticed. Or the op posite - being so fidgety or restless that you have been moving around a lot more than usual: not at all 9. Thoughts that you would be better off or of hurting yourself in some way: not at all Total score: 1 Depression Screening Interpretation: Negative Depression Screening Done: Yes 09462 - PHQ-9 Billing: Patient declined-do not bill Source: Developed by Drs. Tommy Ozuna, Roseanne Bales, Arnold Ramos and colleagues, with an educational lenin from [employer]. Thrive Questionnaire Date Thrive assessed: 03/29/25 I am a: Patient What is your living situation today?: I have a steady place to live Within the past 12 months, did the food you bought not last and you didn't have the money to get more?: Never true Within the past 12 months, did you worry whether your food would run out before you got money to buy more?: Never true Do you have trouble paying for medicines?: No Do you have trouble getting transportation to medical appointments?: No Do you have trouble paying your heating and electricity bill?: No Do you have trouble taking care of your child, family member or friend?: No Do you have trouble with day-to-day activities such as bathing, preparing meals, shopping, managing finances, etc.?: No Are you currently unemployed and looking for a job?: No Are you interested in more education?: No Please select the resources that you would like help with: None Currently or been in a relationship where the following occur: No concerns reported THRIVE Score: 0 AUDIT C Alcohol Use Questionnaire (AUDIT-C) 1. How often do you have a drink containing alcohol?: Monthly or less 2. How many drinks containing alcohol do you have on a typical day when you are drinking?: 1 or 2 3. How often do you have six or more drinks on one occasion?: Never Total Score: 1 Score Reviewed/Action Taken: No DUNCAN-7 AMB Questionnaire DUNCAN-7 Date DUNCAN - 7 assessed: 03/29/25 Feeling nervous, anxious, or on edge: 1 = Several days Not being able to stop or control worryin = Not at all Worrying too much about different things: 0 = Not at all Trouble relaxin = Not at all Being so restless that it is hard to sit still: 0 = Not at all Becoming easily annoyed or irritable: 1 = Several days Feeling afraid as if something awful might happen: 0 = Not at all Total DUNCAN-7 score (0-4 normal; 5-9 mild; 10-14 moderate; 15-21 severe): 2 Source: Developed by Drs. Tommy Ozuna, Roseanne Bales, Arnold Ramos and colleagues, with an educational lenin from [employer]. DUNCAN-7 Assessment Billing DUNCAN-7 Assessment Tool: DUNCAN-7 Assessment 14331 Physical exam (Primary Care) Vital Signs: Last Vital Signs Temp 97.7 F 03/29/25 11:59 Pulse 62 03/29/25 11:59 BP 120/62 03/29/25 11:59 Pulse Ox 95 03/29/25 11:59 Oxygen Delivery Method Room Air 03/29/25 11:59 Oxygen Flow Rate 97.7 03/29/25 11:59 BMI result Body Mass Index 32.5 Tobacco/Smoking Status: Tobacco use Status Tobacco use date assessed 03/29/25 03/29/25 11:56 Patient Tobacco Use Status Never used Tobacco 03/29/25 11:56 e-Cigarette/Vaping Use Never Used 03/29/25 11:56 PHQ-9: PHQ-9 Score PHQ-9: Total score 1 03/29/25 12:08 Depression Screening Interpretation: Negative Thrive Assessment: Date of Thrive Assessment Date Thrive assessed 03/29/25 03/29/25 12:02 Currently or been in a relationship where the following occur: No concerns reported Results AMB Hemoglobin A1c AMB Hemoglobin A1c 7.3 % Last Edit by Riddhi Rome MA on 03/29/25 12:31 Results Reviewed Results Reviewed: Laboratory Last Values Hgb A1c (Clinic) 7.3 % (4.0-6.0) H 03/29/25 12:31 Coding Level of Care Code Est Pt Level 4 (40873) Complex EM visit Add On G2211 Diagnoses Type 2 diabetes mellitus with diabetic microalbuminuria, without long-term current use of insulin E11.29; R80.9 Diabetes mellitus long term care pharmacist insulin use: without senior care use Diabetes mellitus complication detail: with diabetic microalbuminuria Hypomagnesemia E83.42 Essential hypertension I10 Pure hypercholesterolemia E78.00 Coronary artery disease involving [place] coronary artery of [place] heart without angina pectoris I25.10 Coronary Disease-Associated Artery/Lesion type: [place] artery [place] vs. transplanted heart: [place] heart Associated angina: without angina Chronic anemia D64.9 Mixed sleep apnea G47.39 Peripheral vascular disease I73.9 Additional Codes DUNCAN-7 Assessment Billing - DUNCAN-7 Assessment Tool: DUNCAN-7 Assessment [id number] ([id number]) Assessment & Plan Assessment & Plan (1) Type 2 diabetes mellitus with renal manifestations: Code(s): E11.29 - Type 2 diabetes mellitus with other diabetic kidney complication Category: Medical Qualifiers: Diabetes mellitus long term care pharmacist insulin use: without long term care pharmacist use Diabetes mellitus complication detail: with diabetic microalbuminuria Qualified Code(s): E11.29 - Type 2 diabetes mellitus with other diabetic kidney complication; R80.9 - Proteinuria, unspecified (2) Hypomagnesemia: Code(s): E83.42 - Hypomagnesemia Category: Medical (3) Essential hypertension: Code(s): I10 - Essential (primary) hypertension Category: Medical (4) Pure hypercholesterolemia: Code(s): E78.00 - Pure hypercholesterolemia, unspecified Category: Medical (5) Coronary artery disease: Code(s): I25.10 - Atherosclerotic heart disease of [place] coronary artery without angina pectoris Category: Medical Qualifiers: Coronary Disease-Associated Artery/Lesion type: [place] artery [place] vs. transplanted heart: [place] heart Associated angina: without angina Qualified Code(s): I25.10 - Atherosclerotic heart disease of [place] coronary artery without angina pectoris (6) Chronic anemia: Code(s): D64.9 - Anemia, unspecified Category: Medical (7) Mixed sleep apnea: Code(s): G47.39 - Other sleep apnea Category: Medical (8) Peripheral vascular disease: Code(s): I73.9 - Peripheral vascular disease, unspecified Category: Medical Plan Type 2 diabetes with renal manifestation Increase Trulicity to 3 mg weekly. If he develops low blood sugars he was instructed to stop the 5 mg tablet of glipizide ER and continue 10 mg ER glipizide daily. Continue metformin. Written instructions sent to patient portal including treatment of hypoglycemia. He has glucose tablets. Ziggy 2 is being discontinued so I have submitted the Ziggy 3+ reader and sensor s for the patient. This is medically necessary to monitor for hypoglycemia as he does have a history of low blood sugars and is on multiple medications for diabetes and to monitor for hyperglycemia. Microalbuminuria Continue TEN inhibitor for renal protection. Hypertension Continue current regimen. Hyperlipidemia LDL at goal of less than 70. Continue atorvastatin 80 mg. History of CVA in adulthood We will continue to treat risk factors. Continue current medications. Coronary artery disease, bradycardia Continue current medications. S/p pacemaker implantation. Generalized anxiety disorder Stable. Continue SSRI. Hypomagnesemia Seen by Nephrology. Continue magnesium supplementation. Check magnesium. Mixed sleep apnea Patient declined further management of sleep apnea. I reviewed that there are comorbidities associated with this including cardiovascular disease, and given his history I do recommend following up with sleep Medicine to see if there is an alternative. He will think about it, but he declined further intervention today. Chronic anemia, thrombocytopenia Thrombocytopenia resolved on last labs. Anemia improve. Recheck labs. Skin cancer Followed by [facility]. Follow up in 4 months. Orders: Orders Basic Metabolic Panel Today E11.29 - Type 2 diabetes mellitus with other diabetic kidney complication, E83.42 - Hypomagnesemia, I71.20 - Thoracic aortic aneurysm, without rupture, unspecified, R80.9 - Proteinuria, unspecified, Z86.73 - Personal history of transient ischemic attack (TIA), and cerebral infarction without residual deficits Vitamin B12 and Folate Today E11.29 - Type 2 diabetes mellitus with other diabetic kidney complication, E83.42 - Hypomagnesemia, I71.20 - Thoracic aortic aneurysm, without rupture, unspecified, R80.9 - Proteinuria, unspecified, Z86.73 - Personal history of transient ischemic attack (TIA), and cerebral infarction without residual deficits Lipid Panel Today E11.29 - Type 2 diabetes mellitus with other diabetic kidney complication, E78.5 - Hyperlipidemia, unspecified, E83.42 - Hypomagnesemia, I71.20 - Thoracic aortic aneurysm, without rupture, unspecified, R80.9 - Proteinuria, unspecified, Z86.73 - Personal history of transient ischemic attack (TIA), and cerebral infarction without residual deficits Complete Blood Count Auto Diff Today E11.29 - Type 2 diabetes mellitus with other diabetic kidney complication, E83.42 - Hypomagnesemia, I71.20 - Thoracic aortic aneurysm, without rupture, unspecified, R80.9 - Proteinuria, unspecified, Z86.73 - Personal history of transient ischemic attack (TIA), and cerebral infarction without residual deficits IRON PROFILE Today D64.9 - Anemia, unspecified, E11.29 - Type 2 diabetes mellitus with other diabetic kidney complication, E83.42 - Hypomagnesemia, I71.20 - Thoracic aortic aneurysm, without rupture, unspecified, R80.9 - Proteinuria, unspecified, Z86.73 - Personal history of transient ischemic attack (TIA), and cerebral infarction without residual deficits Magnesium Today E83.42 - Hypomagnesemia Medications: New dulaglutide (Trulicity) 3 mg (0.5 mL) subcut QWEEK 2 mL 5RF dulaglutide (Trulicity) 3 mg (0.5 mL) subcut QWEEK 2 mL 5RF blood-glucose sensor (FreeStyle Ziggy 3 Plus Sensor device) Apply 1 new sensor every 15 days as directed to monitor blood glucose continuously. 2 ea 11RF E16.2 - Hypoglycemia, unspecified, R73.03 - Prediabetes blood-glucose,gas station cashier,cont (FreeStyle Ziggy 3 [place]) Use daily to monitor blood glucose levels continuously. 1 ea 0RF Refilled amlodipine 5 mg PO DAILY 90 tabs 3RF Discontinued dulaglutide (Trulicity) Discontinued Reason: Doctor's Order 1.5 mg (0.5 mL) subcut QWEEK 2 mL 2RF FreeStyle Ziggy 2 Sensor (flash glucose sensor) Discontinued Reason: Doctor's Order every 14 days 6 ea 3RF NS
[2025-03-29 11:59] VITALS: BP 120/62; PULSE 62; TEMP 36.5; O2SAT 95; BMI 32.5
--- OUTSIDE RECORDS SUMMARY | 2025-03-29 12:21 | XMS_ITS | Clinical Summary ---
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 [address] [phone] Joyce Pantoja ARNP [address] [phone] Health Maintenance Due Date Last Done Comments Diabetes: Hemoglobin A1C 09/06/2023 Diabetes: Ophthalmology Exam 09/06/2023 07/10/2011, 06/16/2007 Diabetes: Pedal Pulse Checked 09/06/2023 Diabetes: Sensory Foot Exam 09/06/2023 Diabetes: Visual Foot Exam 09/06/2023 Influenza Vaccine (Season Ended) 2025 09/05/2022, 08/24/2020, 07/31/2019, Additional history exists Pneumococcal Vaccine: 50+ Years Completed 03/12/2017, 05/25/2015, 05/10/2005, Additional history exists Hepatitis B Vaccine Aged Out No longe r eligible based on patient's age to complete this topic Insurance [facility] Care Teams Market Reporter Relationship Specialty Start Date End Date Maria Esther Moon MD [address] [place] [address] PCP - General Internal Medicine 08/20/24
== END 2025-03-29 12:40 | disposition home or self-care (01) ==
LOC: HO.HMCFM 11:31
PROVIDERS: PCP Physician Assistant Medical; Visit Provider Physician Assistant Medical
DX: E11.29 Type 2 diabetes mellitus with other diabetic kidney complication (principal); R80.9 Proteinuria, unspecified; E83.42 Hypomagnesemia; I10 Essential (primary) hypertension; E78.00 Pure hypercholesterolemia, unspecified; I25.10 Atherosclerotic heart disease of native coronary artery without angina pectoris; D64.9 Anemia, unspecified; G47.39 Other sleep apnea; I73.9 Peripheral vascular disease, unspecified

== ENCOUNTER 2025-03-29 11:30 | Outpatient (REF) | payer BC, SELFPAY ==
--- OUTSIDE RECORDS SUMMARY | 2025-03-29 12:55 | XMS_ITS | Clinical Summary ---
Author Organization [facility] Facility Address [address] [address] Care Team Providers Care Pulley Maintainer Name Role Phone Maria Esther Moon MD Primary Care Provider [phone] Allergies No known active allergies Medications amLODIPine [...] Visit [facility] [address] [phone] Joyce Pantoja ARNP [address] [phone] Health Maintenance Due Date Last Done Comments [...] patient's age to complete this topic Insurance [facility] Care Teams Pulley Maintainer Relationship Specialty Start Date End Date Maria Esther Moon MD [address] [place] [address] PCP - General Internal Medicine 08/20/24
== END 2025-03-29 11:31 | disposition home or self-care (01) ==
LOC: HO.LAB 11:30
PROVIDERS: PCP Physician Assistant Medical; Visit Provider Physician Assistant Medical
DX: E11.29 Type 2 diabetes mellitus with other diabetic kidney complication (principal); R80.9 Proteinuria, unspecified; E83.42 Hypomagnesemia; I10 Essential (primary) hypertension; E78.00 Pure hypercholesterolemia, unspecified; I25.10 Atherosclerotic heart disease of native coronary artery without angina pectoris; D64.9 Anemia, unspecified; G47.39 Other sleep apnea; I73.9 Peripheral vascular disease, unspecified; Z79.84 Long term (current) use of oral hypoglycemic drugs; Z79.899 Other long term (current) drug therapy; Z95.0 Presence of cardiac pacemaker
CPT/HCPCS: 96127

== ENCOUNTER 2025-05-07 14:47 | Outpatient (REF) | payer BC, SELFPAY ==
[2025-05-07 17:25] LABS: MANUAL DIFF FLAG NO
[2025-05-07 17:38] LABS: Basophils Absolute Auto 0.1 X10*3/uL (0.0-0.2); Basophils Percent Auto 0.7 % (0-2); Eosinophils Absolute Auto 0.3 X10*3/uL (0.0-0.4); Eosinophils Percent Auto 4.4 % (0-4); Hematocrit 34.2 % (42.0-52.0); Hemoglobin 11.9 g/dl (14.0-18.0); Imm Gran Abs Auto 0.01 X10*3/uL (0.00-0.03); Imm Gran Pct Auto 0.1 % (0.0-0.4); Lymphocytes Absolute Auto 1.1 X10*3/uL (1.2-4.9); Lymphocytes Percent Auto 16.8 % (20-40); Mean Corpuscular HGB Conc 34.8 g/dl (31.0-36.0); Mean Corpuscular Hemoglobin 31.6 pg (27.0-33.0); Mean Platelet Volume 10.6 fL (9.4-12.4); Monocytes Absolute Auto 0.7 X10*3/uL (0.1-1.2); Monocytes Percent Auto 10.5 % (2-11); Neutrophils Absolute Auto 4.6 x10*3/uL (2.0-8.3); Neutrophils Percent Auto 67.5 % (45-73); Platelet Count 151 X10*3/uL (160-400); Red Blood Count 3.76 X10*6/uL (4.60-5.80); Red Cell Distribution Width 12.1 % (11.0-16.0); White Blood Count 6.8 X10*3/uL (4.8-10.8)
[2025-05-07 18:03] LABS: Anion Gap 11 (12-20); Blood Urea Nitrogen 20 mg/dL (9-16); Calcium 10.1 mg/dL (8.4-10.2); Carbon Dioxide 25 mmol/L (22-29); Chloride 110 mmol/L (96-108); Cholesterol 119 mg/dL (<200); Estimated Glomerular Filt Rate > 60; Glucose Random 103 mg/dL (60-115); HDL Cholesterol 41 mg/dL (>40); Iron 69 mcg/dL (45-160); LDL Cholesterol Calculated 36 mg/dL (<100); Magnesium 1.5 mg/dL (1.6-2.6); Percent Iron Saturation 23 % (15-50); Potassium 4.9 mmol/L (3.3-5.1); Sodium 141 mmol/L (135-145); Total Iron Binding Capacity 296 mcg/dL (228-428); Triglycerides 211 mg/dL (<150); Unsaturated Iron Binding 227 ug/dL
[2025-05-07 18:20] LABS: Vitamin B12 779 pg/mL (200-900)
== END 2025-05-07 14:48 | disposition home or self-care (01) ==
LOC: HO.WFDLDS 14:47
PROVIDERS: Visit Provider Physician Assistant Medical
DX: E11.29 Type 2 diabetes mellitus with other diabetic kidney complication (principal); R80.9 Proteinuria, unspecified; I71.20 Thoracic aortic aneurysm, without rupture, unspecified; D64.9 Anemia, unspecified; E78.5 Hyperlipidemia, unspecified; E83.42 Hypomagnesemia; Z86.73 Personal history of transient ischemic attack (TIA), and cerebral infarction without residual deficits
CPT/HCPCS: 36415; 80048; 80061; 82607; 82746; 83540; 83735; 85025

== ENCOUNTER 2025-05-13 11:20 | Outpatient (AMB) | payer BC, SELFPAY ==
--- NOTE | 2025-05-13 11:34 | MHC.PC.OV ---
Vital Signs 05/13/25 11:38 05/13/25 12:14 Height 5 ft 5 in Weight 192 lb 8 oz BMI 32.0 BP 143/67 H 122/58 L Blood Pressure Location Lt brachial Position Sitting Respiration 16 Pulse 69 Pulse Source Pulse Oximeter Temp 97.9 F Temp Source Oral Pulse Oximetry (%) 97 Oxygen Delivery Method Room Air Intake Visit Reasons: Type II Diabetes Intake Note: patient here for follow up on Type II diabetes Biology Lecturer Required: No Allergies No Known Allergies Allergy (Verified 05/13/25 11:36) Tobacco use date assessed: 05/13/25 Fall risk assessment: No Falls in past year Last assessed Fall Risk: 05/13/25 Dental Screening Dental Screen Date: 05/13/25 Did you have a dental visit in the last 12 months?: Yes Did you have a dental problem in the last 6 months where you did not have access to dental care?: No Was dental information given to patient?: Patient has dentist HPI HPI Comments History of Present Illness Details This is an 84-year-old male with a past medical history of PVD, CVA at age 50 and age 82, status post CABG and stent to the left circumflex artery, CAD, type 2 diabetes, hypertension, hyperlipidemia, 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 He is accompanied by his , Angela. Type 2 diabetes-hemoglobin A1c 7.3%. Currently on metformin, glipizide and Trulicity. Trulicity was increased at his last visit. Up-to-date eye exam-Dr. Hoff. + Microalbuminuria, + CAD, + PVD. Per CGM he is in target range 85% of the time, 1% low and 14% high. Cardiovascular -followed by Cardiology. Current regimen is aspirin, atorvastatin, Plavix, amlodipine, lisinopril. Beta-isiah discontinued due to bradycardia that was evaluated by Cardiology. S/p pacemaker implantation 06/2024. His EP is Dr. Carvajal now. No complications per patient. He denies chest pain or leg swelling. He also establish care with Dr. Kirkpatrick. 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 He did physical therapy. Patient had a sleep study done after pacemaker implantation. He was diagnosed with obstructive and central sleep apnea. He is followed by sleep medicine. Anxiety-taking fluoxetine 20 mg daily. Hypomagnesemia-Followed by [facility]. Patient takes magnesium chloride 2 x 64 mg tabs twice daily. Magnesium level 1.5. Misses 1 of the doses sometimes. Has a history of skin cancer followed by [facility]. We discussed his blood work which shows recurrence of thrombocytopenia and mild anemia which is a little worse. Denies bleeding or bruising. No blood in stools or abdominal pain. Reports having Cologuard within the last few years. ROS: Constitutional: No unexplained weight loss, fever, chills or night sweats. Eyes: No vision changes Respiratory: No shortness of breath, cough or sputum production. Cardiovascular: No chest pain, chest pressure or chest discomfort. No palpitations or pedal edema. Gastrointestinal: No anorexia, nausea, vomiting or diarrhea. No abdominal pain or blood in stool. Neurologic: No headache, dizziness, syncope, unilateral weakness Hematologic/Lymphatics: No bleeding or bruising. No painful lymph nodes. Endocrine: No cold or heat intolerance. No polyuria or polydipsia. Physical exam: Constitutional: Alert, in no distress. Head: Normocephalic. Eyes: Pupils are equal, round and reactive to light. Extraocular muscles intact. Neck: Supple, Full range of motion. No lymphadenopathy. Respiratory: Clear to auscultation. Cardiovascular: S1 S2 regular. No murmur Extremities: Warm and well perfused. No clubbing, cyanosis or edema. [facility] Medical History (Updated 05/13/25 @ 12:11 by EVA Romeo) Thrombocytopenia Neoplasm of skin Shingles Osteoporosis Arthritis Heart disease Hypercholesteremia HTN (hypertension) Type 2 diabetes mellitus with renal manifestations Thoracic aortic aneurysm Peripheral vascular disease Mixed sleep apnea Microalbuminuria Hypomagnesemia Essential hypertension Pure hypercholesterolemia History of CVA in adulthood Bilateral hip pain Hearing loss Chronic anemia Coronary artery disease Bradycardia Bilateral knee pain Generalized anxiety disorder Surgical History (Updated 06/11/24 @ 10:56 by EVA Romeo) S/P AAA repair using straight graft History of carotid endarterectomy Hx of CABG S/P coronary artery stent placement History of cardiac catheterization History of angioplasty of peripheral vessel Family History Sister Lung cancer Stroke Brother Stroke Social History (Updated 03/29/25 @ 11:56 by Riddhi Rome MA) Housing: House Alcohol intake: current Patient Tobacco Use Status: Never used Tobacco e-Cigarette/Vaping Use: Never Used Second Hand Smoke Exposure: No service: Yes Current occupational status: retired Current occupational exposures/hazards: No Cognitive needs: No Hearing needs: Yes Vision needs: Yes Questionnaire Thrive Questionnaire Date Thrive assessed: 11/19/24 I am a: Patient What is your living situation today?: I have a steady place to live Within the past 12 months, did the food you bought not last and you didn't have the money to get more?: Never true Within the past 12 months, did you worry whether your food would run out before you got money to buy more?: Never true Do you have trouble paying for medicines?: No Do you have trouble getting transportation to medical appointments?: No Do you have trouble paying your heating and electricity bill?: No Do you have trouble taking care of your child, family member or friend?: No Do you have trouble with day-to-day activities such as bathing, preparing meals, shopping, managing finances, etc.?: No Are you currently unemployed and looking for a job?: No Are you interested in more education?: No Please select the resources that you would like help with: None Currently or been in a relationship where the following occur: No concerns reported THRIVE Score: 0 DUNCAN-7 AMB Questionnaire DUNCAN-7 Date DUNCAN - 7 assessed: 03/29/25 Source: Developed by Drs. Tommy Ozuna, Roseanne Bales, Arnold Ramos and colleagues, with an educational lenin from [employer]. Physical exam (Primary Care) Vital Signs: Last Vital Signs Temp 97.9 F 05/13/25 11:38 Pulse 69 05/13/25 11:38 Resp 16 05/13/25 11:38 BP 122/58 L 05/13/25 12:14 Pulse Ox 97 05/13/25 11:38 Oxygen Delivery Method Room Air 05/13/25 11:38 BMI result Body Mass Index 32.0 Tobacco/Smoking Status: Tobacco use Status Tobacco use date assessed 05/13/25 05/13/25 11:42 Patient Tobacco Use Status Never used Tobacco 05/13/25 11:36 e-Cigarette/Vaping Use Never Used 05/13/25 11:36 Thrive Assessment: Date of Thrive Assessment Date Thrive assessed 11/19/24 05/13/25 11:36 Currently or been in a relationship where the following occur: No concerns reported Coding Level of Care Code Est Pt Level 4 (43737) Complex EM visit Add On G2211 Diagnoses Type 2 diabetes mellitus with diabetic microalbuminuria, without long-term current use of insulin E11.29; R80.9 Diabetes mellitus complication detail: with diabetic microalbuminuria Diabetes mellitus radiologic technology program director insulin use: without jail use Hypomagnesemia E83.42 Essential hypertension I10 Pure hypercholesterolemia E78.00 Coronary artery disease involving [place] coronary artery of [place] heart without angina pectoris I25.10 Associated angina: without angina Coronary Disease-Associated Artery/Lesion type: [place] artery [place] vs. transplanted heart: [place] heart Chronic anemia D64.9 Mixed sleep apnea G47.39 Peripheral vascular disease I73.9 Thrombocytopenia D69.6 Assessment & Plan Assessment & Plan (1) Type 2 diabetes mellitus with renal manifestations: Code(s): E11.29 - Type 2 diabetes mellitus with other diabetic kidney complication Category: Medical Qualifiers: Diabetes mellitus complication detail: with diabetic microalbuminuria Diabetes mellitus radiologic technology program director insulin use: without jail use Qualified Code(s): E11.29 - Type 2 diabetes mellitus with other diabetic kidney complication; R80.9 - Proteinuria, unspecified (2) Hypomagnesemia: Code(s): E83.42 - Hypomagnesemia Category: Medical (3) Essential hypertension: Code(s): I10 - Essential (primary) hypertension Category: Medical (4) Pure hypercholesterolemia: Code(s): E78.00 - Pure hypercholesterolemia, unspecified Category: Medical (5) Coronary artery disease: Code(s): I25.10 - Atherosclerotic heart disease of [place] coronary artery without angina pectoris Category: Medical Qualifiers: Associated angina: without angina Coronary Disease-Associated Artery/Lesion type: [place] artery [place] vs. transplanted heart: [place] heart Qualified Code(s): I25.10 - Atherosclerotic heart disease of [place] coronary artery without angina pectoris (6) Chronic anemia: Code(s): D64.9 - Anemia, unspecified Category: Medical (7) Mixed sleep apnea: Code(s): G47.39 - Other sleep apnea Category: Medical (8) Peripheral vascular disease: Code(s): I73.9 - Peripheral vascular disease, unspecified Category: Medical (9) Thrombocytopenia: Code(s): D69.6 - Thrombocytopenia, unspecified Category: Medical Plan Type 2 diabetes with renal manifestation Continue Trulicity 3 mg weekly, glipizide ER 10 mg daily and metformin. Microalbuminuria Continue TEN inhibitor for renal protection. Hypertension Continue current regimen. Hyperlipidemia LDL at goal of less than 70. Continue atorvastatin 80 mg. History of CVA in adulthood We will continue to treat risk factors. Continue current medications. Coronary artery disease, bradycardia Continue current medications. S/p pacemaker implantation. Generalized anxiety disorder Stable. Continue SSRI. Hypomagnesemia Seen by Nephrology. Continue magnesium supplementation. Encouraged compliance. Chronic anemia, thrombocytopenia Refer to heme/Onc. Skin cancer Followed by [facility]. Follow up in 3 months. Orders: Referrals Hematology & Oncology Referral D64.9 - Anemia, unspecified, D69.6 - Thrombocytopenia, unspecified
[2025-05-13 11:38] VITALS: BP 143/67; PULSE 69; RESP 16; TEMP 36.6; O2SAT 97; BMI 32.0
[2025-05-13 12:14] VITALS: BP 122/58
== END 2025-05-13 12:24 | disposition home or self-care (01) ==
LOC: HO.HMCFM 11:21
PROVIDERS: PCP Physician Assistant Medical; Visit Provider Physician Assistant Medical
DX: E11.29 Type 2 diabetes mellitus with other diabetic kidney complication (principal); R80.9 Proteinuria, unspecified; E83.42 Hypomagnesemia; I10 Essential (primary) hypertension; E78.00 Pure hypercholesterolemia, unspecified; I25.10 Atherosclerotic heart disease of native coronary artery without angina pectoris; D64.9 Anemia, unspecified; G47.39 Other sleep apnea; I73.9 Peripheral vascular disease, unspecified; D69.6 Thrombocytopenia, unspecified

== ENCOUNTER → 2025-07-23 14:40 | Outpatient (BNV) | payer BC, SELFPAY | PROVIDERS: PCP Physician Assistant Medical; Visit Provider Nurse Practitioner Family | DX: D61.818 Other pancytopenia (principal) | CPT/HCPCS: 99204; 99213 ==

== ENCOUNTER 2025-08-16 11:22 | Outpatient (AMB) | payer BC, SELFPAY ==
--- NOTE | 2025-08-16 11:33 | MHC.PC.OV ---
Vital Signs 08/16/25 11:37 Height 5 ft 6 in Weight 187 lb 6 oz BMI 30.2 BP 116/62 Blood Pressure Location Lt brachial Position Sitting Respiration 14 Pulse 82 Pulse Source Pulse Oximeter Temp 97.9 F Temp Source Temporal Artery Scan Pulse Oximetry (%) 94 Oxygen Delivery Method Room Air Intake Visit Reasons: med review - see comments Intake Note: [place] presents in the office today for a medication review. Allergies No Known Allergies Allergy (Verified 08/16/25 11:35) Medication List - Last Reconciled 08/16/25 by EVA Romeo acetaminophen ER (Tylenol Arthritis Pain) 650 mg PO Q12H amlodipine 5 mg PO DAILY apixaban (Eliquis) 5 mg PO BID atorvastatin 80 mg PO DAILY blood-glucose sensor ([employer] Software Incyle Ziggy 3 Plus Sensor device) Apply 1 new sensor every 15 days as directed to monitor blood glucose continuously. blood-glucose,wrapper operator,cont (FreeStyle Ziggy 3 [place]) Use daily to monitor blood glucose levels continuously. dulaglutide (Trulicity) 3 mg (0.5 mL) subcut QWEEK fluoxetine 20 mg PO DAILY glipizide ER 10 mg PO DAILY glucose take 3-4 tabs orally every 15 minutes PRN; until symptoms of low blood sugar are controlled lisinopril 40 mg PO DAILY magnesium chloride 128 mg (2 x 64 mg) PO BID 90 days metformin ER 1,000 mg (2 x 500 mg) PO DAILY vitamin B complex 1 tab PO DAILY Tobacco use date assessed: 08/16/25 Dental Screening Dental Screen Date: 08/16/25 Did you have a dental visit in the last 12 months?: Yes Did you have a dental problem in the last 6 months where you did not have access to dental care?: No Was dental information given to patient?: Patient has dentist HPI HPI Comments History of Present Illness Details This is an 85-year-old male with a past medical history of PVD, CVA at age 50 and age 82, status post CABG and stent to the left circumflex artery, CAD, type 2 diabetes, hypertension, hyperlipidemia, 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 He is accompanied by his , Anegla. Type 2 diabetes- Currently on metformin, glipizide and Trulicity. Up-to-date eye exam-Dr. Hoff. 14 day CGM review shows 82 % of blood sugars within target range. 0% hypoglycemia and 18% hyperglycemia. + Microalbuminuria, + CAD, + PVD. Cardiovascular -followed by Cardiology. Current regimen is aspirin, atorvastatin, Plavix, amlodipine, lisinopril. Beta-isiah discontinued due to bradycardia that was evaluated by Cardiology. S/p pacemaker implantation 06/2024. His EP is Dr. Carvajal now. No complications per patient. He denies chest pain or leg swelling. He is also followed by Dr. Kirkpatrick. 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 He did physical therapy. Patient had a sleep study done after pacemaker implantation. He was diagnosed with obstructive and central sleep apnea. He is followed by sleep medicine. Anxiety-taking fluoxetine 20 mg daily. Hypomagnesemia-Followed by [facility]. Patient takes magnesium chloride 2 x 64 mg tabs twice daily. Magnesium level 1.5. Misses 1 of the doses sometimes. Has a history of skin cancer followed by [facility]. The patient saw Dr. Beltran for evaluation of bicytopenia. Anemia is likely multifactorial with chronic diseases contributing. Continued monitoring recommended. Abdominal ultrasound ordered to look for splenomegaly.. Plan is to proceed with bone marrow exam if blood count continued to decline. He did not do Cologuard. ROS: Constitutional: No unexplained weight loss, fever, chills or night sweats. Eyes: No vision changes Respiratory: No shortness of breath, cough or sputum production. Cardiovascular: No chest pain, chest pressure or chest discomfort. No palpitations or pedal edema. Gastrointestinal: No anorexia, nausea, vomiting or diarrhea. No abdominal pain or blood in stool. Neurologic: No headache, dizziness, syncope, unilateral weakness Hematologic/Lymphatics: No bleeding or bruising. No painful lymph nodes. Endocrine: No cold or heat intolerance. No polyuria or polydipsia. Physical exam: Constitutional: Alert, in no distress. Head: Normocephalic. Eyes: Pupils are equal, round and reactive to light. Extraocular muscles intact. Neck: Supple, Full range of motion. No lymphadenopathy. Respiratory: Clear to auscultation. Cardiovascular: S1 S2 regular. No murmur Extremities: Warm and well perfused. No clubbing, cyanosis or edema. [facility] Medical History Thrombocytopenia Neoplasm of skin Shingles Osteoporosis Arthritis Heart disease Hypercholesteremia HTN (hypertension) Type 2 diabetes mellitus with renal manifestations Thoracic aortic aneurysm Peripheral vascular disease Mixed sleep apnea Microalbuminuria Hypomagnesemia Essential hypertension Pure hypercholesterolemia History of CVA in adulthood Bilateral hip pain Hearing loss Chronic anemia Coronary artery disease Bradycardia Bilateral knee pain Generalized anxiety disorder Surgical History S/P AAA repair using straight graft History of carotid endarterectomy Hx of CABG S/P coronary artery stent placement History of cardiac catheterization History of angioplasty of peripheral vessel Family History Sister Lung cancer Stroke Brother Stroke Social History (Updated 08/16/25 @ 11:36 by Riddhi Rome CMA) Household Members: Spouse Housing: House Are you a primary healthcare account manager to a significant other at home: Yes Do you presently have visiting nurse or other home services: No Alcohol intake: current Patient Tobacco Use Status: Never used Tobacco e-Cigarette/Vaping Use: Never Used Second Hand Smoke Exposure: No service: Yes Current occupational status: retired Current occupational exposures/hazards: No Cognitive needs: No Hearing needs: Yes Vision needs: Yes Questionnaire Thrive Questionnaire Date Thrive assessed: 11/19/24 I am a: Patient What is your living situation today?: I have a steady place to live Within the past 12 months, did the food you bought not last and you didn't have the money to get more?: Never true Within the past 12 months, did you worry whether your food would run out before you got money to buy more?: Never true Do you have trouble paying for medicines?: No Do you have trouble getting transportation to medical appointments?: No Do you have trouble paying your heating and electricity bill?: No Do you have trouble taking care of your child, family member or friend?: No Do you have trouble with day-to-day activities such as bathing, preparing meals, shopping, managing finances, etc.?: No Are you currently unemployed and looking for a job?: No Are you interested in more education?: No Please select the resources that you would like help with: None Currently or been in a relationship where the following occur: No concerns reported THRIVE Score: 0 DUNCAN-7 AMB Questionnaire DUNCAN-7 Date DUNCAN - 7 assessed: 03/29/25 Source: Developed by Drs. Tommy Ozuna, Roseanne Bales, Arnold Ramos and colleagues, with an educational lenin from [employer]. Physical exam (Primary Care) Vital Signs: Last Vital Signs Temp 97.9 F 08/16/25 11:37 Pulse 82 08/16/25 11:37 Resp 14 08/16/25 11:37 BP 116/62 08/16/25 11:37 Pulse Ox 94 08/16/25 11:37 Oxygen Delivery Method Room Air 08/16/25 11:37 BMI result Body Mass Index 30.2 Tobacco/Smoking Status: Tobacco use Status Tobacco use date assessed 08/16/25 08/16/25 11:40 Patient Tobacco Use Status Never used Tobacco 08/16/25 11:36 e-Cigarette/Vaping Use Never Used 08/16/25 11:36 Thrive Assessment: Date of Thrive Assessment Date Thrive assessed 11/19/24 08/16/25 11:35 Currently or been in a relationship where the following occur: No concerns reported Coding Level of Care Code Est Pt Level 4 (79218) Complex EM visit Add On G2211 Diagnoses Type 2 diabetes mellitus with diabetic microalbuminuria, without long-term current use of insulin E11.29; R80.9 Diabetes mellitus complication detail: with diabetic microalbuminuria Diabetes mellitus transmitter operator insulin use: without transmitter operator use Hypomagnesemia E83.42 Essential hypertension I10 Pure hypercholesterolemia E78.00 Coronary artery disease involving [place] coronary artery of [place] heart without angina pectoris I25.10 Associated angina: without angina Coronary Disease-Associated Artery/Lesion type: [place] artery [place] vs. transplanted heart: [place] heart Chronic anemia D64.9 Mixed sleep apnea G47.39 Peripheral vascular disease I73.9 Thrombocytopenia D69.6 Assessment & Plan Assessment & Plan (1) Type 2 diabetes mellitus with renal manifestations: Code(s): E11.29 - Type 2 diabetes mellitus with other diabetic kidney complication Category: Medical Qualifiers: Diabetes mellitus complication detail: with diabetic microalbuminuria Diabetes mellitus snf insulin use: without snf use Qualified Code(s): E11.29 - Type 2 diabetes mellitus with other diabetic kidney complication; R80.9 - Proteinuria, unspecified (2) Hypomagnesemia: Code(s): E83.42 - Hypomagnesemia Category: Medical (3) Essential hypertension: Code(s): I10 - Essential (primary) hypertension Category: Medical (4) Pure hypercholesterolemia: Code(s): E78.00 - Pure hypercholesterolemia, unspecified Category: Medical (5) Coronary artery disease: Code(s): I25.10 - Atherosclerotic heart disease of [place] coronary artery without angina pectoris Category: Medical Qualifiers: Associated angina: without angina Coronary Disease-Associated Artery/Lesion type: [place] artery [place] vs. transplanted heart: [place] heart Qualified Code(s): I25.10 - Atherosclerotic heart disease of [place] coronary artery without angina pectoris (6) Chronic anemia: Code(s): D64.9 - Anemia, unspecified Category: Medical (7) Mixed sleep apnea: Code(s): G47.39 - Other sleep apnea Category: Medical (8) Peripheral vascular disease: Code(s): I73.9 - Peripheral vascular disease, unspecified Category: Medical (9) Thrombocytopenia: Code(s): D69.6 - Thrombocytopenia, unspecified Category: Medical Plan Type 2 diabetes with renal manifestation Continue Trulicity 3 mg weekly, glipizide ER 10 mg daily and metformin. Check hemoglobin A1c and microalbuminuria. Microalbuminuria Continue TEN inhibitor for renal protection. Hypertension Continue current regimen. Hyperlipidemia LDL goal of less than 70. Continue atorvastatin 80 mg. History of CVA in adulthood We will continue to treat risk factors. Continue current medications. Coronary artery disease, bradycardia Continue current medications. S/p pacemaker implantation. Generalized anxiety disorder Stable. Continue SSRI. Hypomagnesemia Seen by Nephrology. Continue magnesium supplementation. Chronic anemia, thrombocytopenia Evaluated by heme/Onc. Proceeding with abdominal ultrasound. Cologuard reordered. Skin cancer Followed by [facility]. Follow up in 3 months. Orders: Orders Microalbumin, Random (w Creat) Today E11.9 - Type 2 diabetes mellitus without complications Hemoglobin A1c Today E83.42 - Hypomagnesemia, R73.9 - Hyperglycemia, unspecified Magnesium Today E83.42 - Hypomagnesemia Referrals Cologuard Test Z12.11 - Encounter for screening for malignant neoplasm of colon Medications: Refilled fluoxetine 20 mg PO DAILY 90 caps 3RF atorvastatin 80 mg PO DAILY 90 tabs 3RF lisinopril 40 mg PO DAILY 90 tabs 3RF amlodipine 5 mg PO DAILY 90 tabs 3RF glipizide ER 10 mg PO DAILY 90 tabs 3RF metformin ER 1,000 mg (2 x 500 mg) PO DAILY 180 tabs 3RF dulaglutide (Trulicity) 3 mg (0.5 mL) subcut QWEEK 2 mL 11RF
[2025-08-16 11:37] VITALS: BP 116/62; PULSE 82; RESP 14; TEMP 36.6; O2SAT 94; BMI 30.2
--- OUTSIDE RECORDS SUMMARY | 2025-08-16 12:52 | XMS_ITS | Clinical Summary ---
Author Organization [facility] Address [address] [place], [place] [id number] Phone Care Team Providers Care Engineering Officer Name Role Phone Maria Esther Sage MD Primary Care Provider + [phone] Allergies No known active allergies Medications FLUoxetine (PROZAC) 20 MG capsule Take 20 mg by mouth daily. Active metFORMIN (GLUCOPHAGE-XR) 500 MG 24 hr tablet Take 1,000 mg by mouth daily. Active lisinopril (PRINIVIL,ZESTRI L) 30 MG tablet Take 30 mg by mouth daily. Active clopidogrel (PLAVIX) 75 mg tablet Take 75 mg by mouth daily. Active metoprolol succinate (TOPROL-XL) 25 MG 24 hr tablet Take 25 mg by mouth daily. Active atorvastatin (LIPITOR) 80 MG tablet Take 80 mg by mouth daily. Active nitroglycerin (NITROSTAT) 0.[address] 0.4 mg under the tongue every 5 (five) minutes as needed for chest pain. Active b complex vitamins capsule Take 1 capsule by mouth daily. Active glipiZIDE (GLUCOTROL) 5 MG 24 hr tablet 1 Active betamethasone dipropionate 0.05 % cream Apply topically 2 (two) times a day. 45 g 1 Active Additional Information Patient taking differently:TopicalAs needed, Reported on 04/26/2025 aspirin 81 MG EC tablet Take 81 mg by mouth daily. Active amLODIPine (NORVASC) 5 MG tablet Take 5 mg by mouth. 3 Active glucose 4 GM chewable tablet as needed. 4 Active dulaglutide (TRULICITY) 3 mg/0.5 mL subcutaneous injection Inject 3 mg under the skin every 7 days. Active FREESTYLE CHANDU 2 SENSOR kit USE DIRECTED TO MONITOR GLUCOSE LEVELS FOR TYPE 2 DIABETES. Active MAG 64 64 mg TbEC Take 128 mg by mouth 2 (two) times a day. 4 Active glipiZIDE (GLUCOTROL XL) 10 MG 24 hr tablet Take 10 mg by mouth daily. 15mg total Active acetaminophen (TYLENOL) 650 MG CR tablet Take 650 mg by mouth every 8 (eight) hours as needed for pain (specific location in comments). 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 Assessment & Plan (09/11/2024 1:30 PM EDT): Device interrogation within normal limits. Occasional episodes of atrial tachycardia and nonsustained VT Atrial tachycardia 09/11/2024 Assessment & Plan (09/11/2024 1:30 PM EDT): Occasional episodes of atrial tachycardia with no clear evidence of sustained atrial fibrillation. We discussed adding beta-isiah however patient wants to talk to primary sheet finisher before adding. Social History Tobacco Use Types Packs/Day Years Used Date Smoking Tobacco: Former Cigarettes 1 30 Smokeless Tobacco: Never Tobacco Cessation:Counseling Given: Not Answered Alcohol Use Standard Drinks/Week Comments Yes 0 (1 standard drink = 0.6 oz pur e alcohol) Education Answer Date Recorded Are you interested in more education? Not on kathy e 03/15/2023 Are you concerned about learning? Not on file 03/15/2023 No 03/15/2023 No 03/15/2023 Digital Access Answer Date Recorded No 04/13/2023 No 04/13/2023 Reliable internet access at home? Not on file 04/13/2023 Device with a working camera? Not on file Sex and Gender Information Value Date Recorded Sex Assigned at Not on file Legal Sex Male 10:11 PM EDT Gender Identity Not on file Sexual Orientation Not on file Last Filed Vital Signs Vital Sign Reading Time Taken Comments Blood Pressure 122/74 04/26/2025 7:10 AM EDT Pulse 80 04/26/2025 7:10 AM EDT Temperature 36.4 C (97.5 F) 08/18/2021 11:53 AM EDT Respiratory Rate 18 08/18/2021 11:53 AM EDT Oxygen Saturation 96% 04/26/2025 7:10 AM EDT Inhaled Oxygen Concentration - - Weight 86.6 kg (191 lb) 04/26/2025 7:10 AM EDT Height 167.6 cm (5' 6 ) 04/26/2025 7:10 AM EDT Body Mass Index 30.83 04/26/2025 7:10 AM EDT Plan of Treatment Upcoming Encounters Date Type Department Care Team (Late st Contact Info) Description 08/30/2025 10:45 AM EDT Office Visit [facility] [address] [place] [address] 3rd [facility], [address] [place] [address] Andrés Kirkpatrick DO 22 [facility] [address] [place] [address] Health Maintenance Due Date Last Done Comments HEMOGLOBIN A1C 1942 DEPRESSION SCREENING 1954 ZOSTER VACCINES (1 of 2) 1992 RSV VACCINE (1 - 1-dose 75+ series) 2017 CREATININE LEVEL 06/07/2022 06/07/2021 POTASSIUM LEVEL 06/07/2022 06/07/2021 DIABETIC EYE EXAM 04/26/2025 INFLUENZA VACCINE (#1) 2025 , 07/31/2019, 09/12/2018, Additional history exists COVID-19 VACCINE ( - season) 2025 01/15/2021, 12/25/2020 BLOOD PRESSURE 10/26/2025 04/26/2025 Adult Td,Tdap Booster 04/13/2028 04/13/2018 , 08/26/2014, 09/25/2011, Additional history exists PNEUMOCOCCAL VACCINES (50+ years) Completed 03/12/2017, 05/25/2015, 05/10/2005, Additional history exists HEPATITIS A VACCINES Aged Out No long er eligible based on patient's age to complete this topic HIB VACCINES Aged Out No longer eligi ble based on patient's age to complete this topic MENINGOCOCCAL VACCINES (ACWY) Aged Out No longer eligible based on patient's age to complete this topic MENINGOCOCCAL VACCINES (B) Aged Out N o longer eligible based on patient's age to complete this topic Medical Devices Implanted Type Area Billing Analyst Device Identifier Shelf Expiration Date Model / Serial / Lot Lens Lens Eye Nodata NODATA Description:Wrap around aort a Stent Stent Heart Stent Stent Procedures Procedure Name Priority Date/Time Associated Diagnosis Comments BASIC METABOLIC PANEL STAT 06/07/2021 8:07 AM EDT from Last 3 Months or Most Recently Relevant to Health Maintenance Results * (ABNORMAL) Basic metabolic panel (06/07/2021 8:07 AM EDT) SODIUM 141 133 - 146 mmol/L [facility] CHLORIDE 106 96 - 108 mmol/L [facility] POTASSIUM 4.4 3.3 - 5.1 mmol/L [facility] CO2 26 21 - 35 mmol/L [facility] BUN 21(H) 6 - 19 mg/dL [facility] CREATININE 0.90 0.5 - 1.5 mg/dL [facility] GLUCOSE 195(H) 70 - 99 mg/dL [facility] CALCIUM 9.3 8.4 - 10.3 mg/dL [facility] EGFR 82 >59 mL/min/1.7 3m2 [facility] Comment:Estimated glomerular filtration rate calculated using the CKD-EPI equation. ANION GAP 13 10 - 20 mmol/L [facility] Blood 06/07/2021 8:07 AM EDT 06/07/2021 8:08 AM EDT us Andrés Kirkpatrick DO LAB BLOOD ORDERABLES Final Re sult [address] [address] from Last 3 Months or Most Recently Relevant to Health Maintenance Insurance MEDICARE PPO BLUE REPLACEMENT MEDICARE PPO BLUE [place]AC[place] [address] [place] [address] MEDICARE PPO BLUE REPLACEMENT MEDICARE PPO BLUE REPLACEMENT [place] [address] [place] [address] MEDICARE PPO BLUE REPLACEMENT MEDICARE PPO BLUE REPLACEMENT MEDICARE PPO BLUE REPLACEMENT MEDICARE PPO BLUE REPLACEMENT [place] MEDICARE PPO BLUE REPLACEMENT Advance Directives For more information, please contact: [phone] (9AM - 5PM [facility], Saturday-Saturday) * Full Code (Latest Code Status on File) Date Activated Date Inactivated Comments 06/07/2021 10:21 AM Question Answer Comments Code Status Confirmed With: Patient * Full Code Date Activated Date Inactivated Comments 06/07/2021 7:19 AM 06/07/2021 10:21 AM Question Answer Comments Code Status Confirmed With: Patient Code Status Communicated To: Inpatient Attending * Full Code Date Activated Date Inactivated Comments 10/18/2020 6:27 AM 06/07/2021 7:19 AM Question Answer Comments Code Status Confirmed With: Other (specify below ) Code Status Communicated To: Other (specify belo w) Code Discussion Comments: transcribed pe r orders signed by Dr Andrés Kirkpatrick Care Teams Engineering Officer Relationship Specialty Start Date End Date Maria Esther Sage MD PCP - General Internal Medicine 08/18/21 Additional Source Comments The information contained in this document represents components of the legal health record. It is not the complete legal health record.[facility]
--- OUTSIDE RECORDS SUMMARY | 2025-08-16 12:52 | XMS_ITS | Encounter Summary ---
Author Organization [facility] Address [address] [place] [address] Phone Care Team Providers Care Dispatch Specialist Name Role Phone Unknown, Unknown Primary Care Provider Maria Esther Montilla MD Primary Care Provider + [phone] Encounter Details Date Type Department Care Team (Late st Contact Info) Description 06/07/2021 Procedure Pass [facility] [address] [place] [address] Social History Tobacco Use Types Packs/Day Years Used Date Smoking Tobacco: Former Cigarettes 1 30 Smokeless Tobacco: Never Alcohol Use Standard Drinks/Week Comments Yes 0 (1 standard drink = 0.6 oz pur e alcohol) Sex and Gender Information Value Date Recorded Sex Assigned at Not on file Legal Sex Male 10:11 PM EDT Gender Identity Not on file Sexual Orientation Not on file documented as of this encounter Plan of Treatment Upcoming Encounters Date Type Department Care Team (Late st Contact Info) Description 08/30/2025 10:45 AM EDT Office Visit [facility] 22 [facility] 3rd Floor, [address] [place] [address] Andrés Kirkpatrick DO 22 [facility] [address] [place] [address] documented as of this encounter Visit Diagnoses Not on filedocumented in this encounter Care Teams Dispatch Specialist Relationship Specialty Start Date End Date Unknown, Unknown, PCP - General 10/14/20 08/17/21 Maria Esther Sage MD PCP - General Internal Medicine 08/18/21 documented as of this encounter Additional Source Comments The information contained in this document represents components of the legal health record. It is not the complete legal health record.[facility]
--- OUTSIDE RECORDS SUMMARY | 2025-08-16 12:52 | XMS_ITS | Encounter Summary ---
Author Organization [facility] Address [address] [place] [address] Phone Care Team Providers Care Leak Inspector Name Role Phone Unknown, Unknown Primary Care Provider Maria Esther Montilla MD Primary Care Provider + [phone] Encounter Details Date Type Department Care Team (Late st Contact Info) Description 10/18/2020 Procedure Pass [facility] [address] [place] [address] Social History Tobacco Use Types Packs/Day Years Used Date Smoking Tobacco: Former Smokeless Tobacco: Never Alcohol Use Standard Drinks/Week [...] Description 08/30/2025 10:45 AM EDT Office Visit [facility] [address] [place] [address] 3rd Floor, [address] [place] [address] Andrés Kirkpatrick DO [address] [address] documented as of this encounter Visit Diagnoses Not on filedocumented in this encounter Care Teams Leak Inspector Relationship Specialty Start Date End Date Unknown, Unknown, MD PCP - General 10/14/20 08/17/21 Maria Esther Sage MD PCP - General Internal Medicine 08/18/21 documented as of this encounter Additional Source Comments The information contained in this document represents components of the legal health record. It is not the complete legal health record.[facility]
== END 2025-08-16 12:19 | disposition home or self-care (01) ==
LOC: HO.HMCFM 11:23
PROVIDERS: PCP Physician Assistant Medical; Visit Provider Physician Assistant Medical
DX: E11.29 Type 2 diabetes mellitus with other diabetic kidney complication (principal); R80.9 Proteinuria, unspecified; E83.42 Hypomagnesemia; I10 Essential (primary) hypertension; E78.00 Pure hypercholesterolemia, unspecified; I25.10 Atherosclerotic heart disease of native coronary artery without angina pectoris; D64.9 Anemia, unspecified; G47.39 Other sleep apnea; I73.9 Peripheral vascular disease, unspecified; D69.6 Thrombocytopenia, unspecified

== ENCOUNTER 2025-08-16 11:22 | Outpatient (REF) | payer BC, SELFPAY ==
--- OUTSIDE RECORDS SUMMARY | 2025-08-16 13:50 | XMS_ITS | Clinical Summary ---
Author Organization [facility] Address [address] [address] Phone Care Team Providers Care Residential Treatment Specialist Name Role Phone Maria Esther Moon MD Primary Care Provider [phone] Allergies No known active allergies Medications amLODIPine [...] mouth 1 (one) time each day Active Eliquis 5 MG tablet Take 5 mg by mouth in the morning and 5 mg in the evening. 05/20/2025 Active Active Problems Problem Noted Date Diagnosed Date Chronic kidney disease, stage 2 (mild) 4 Chronic anemia 09/06/2023 09/06/2023 Hypomagnesemia 09/06/2023 09/06/2023 [...] Zion Silva Depressive disorder 11/19/2012 09/06/2023 09/06/20 23 Peripheral vascular disease 04/13/2010 09/06/2023 09/06/2023 Overview [...] 09/06/2023 Stenosis of artery 01/01/2006 09/06/2023 3 Encounters Date Type Department Care Team Description 06/21/2025 11:00 AM EDT Office Visit [facility] [address] [place] [phone] Joyce Pantoja ARNP Chronic kidney disease, stage 2 (mild) (Primary Dx); Proteinuria, not otherwise specified; Benign essential hypertension; Hypomagnesemia 06/21/2025 Orders Only [facility]. [address] [facility] [address] [place] [address] Joyce Pantoja ARNP from Last 3 Months Immunizations Immunization Administration Dates Next Due Influenza Split High Dose Pr eservative Free IM 07/31/2019,09/12/2018,09/16/2017,08/29,08/02/2015 Influenza, Unspecified 09/05/2022,2019,07/31/2019,09/12,09/16/2017,08/29/2016,08/02/2015 ,11/02/2014,2013,08/20/2012,06/2011,09/14/2008,10/13/2007, 6,09/20/2005 Moderna SARS-COV-2 10/26/2021 Pfizer SARS-COV-2 01/15/2021,12/25/2020 Pneumococcal Conjugate 13-Valent 05/25/2015 Pneumococcal Polysaccharide 03/12/2017, 5,02/15/2000 Td 04/13/2018,09/25/2011,02/15/2000 Td, Unspecified 04/13/2018,09/25/2011,02/15/2000 Tdap 08/26/2014 Social History Tobacco Use Types Packs/Day Years Used Date Smoking Tobacco: Former Cigarettes Tobacco Cessation:Counseling Given: Not Answered Alcohol Use Standard Drinks/Week Comments Yes 0 (1 standard drink = 0.6 oz pur e alcohol) Sex and Gender Information Value Date Recorded Sex Assigned at Not on file Legal Sex Male 1:33 PM EDT Gender Identity Not on file Sexual Orientation Not on file Last Filed Vital Signs Vital Sign Reading Time Taken Comments Blood Pressure 148/70 06/21/2025 11:48 AM EDT Pulse 69 06/21/2025 11:48 AM EDT Temperature - - Respiratory Rate - - Oxygen Saturation 95% 06/21/2025 11:48 AM EDT Inhaled Oxygen Concentration - - Weight 87.5 kg (193 lb) 06/21/2025 11:48 AM EDT Height - - Body Mass Index - - Plan of Treatment Upcoming Encounters Date Type Department Care Team (Late st Contact Info) Description 06/21/2026 11:00 AM EDT Office Visit [facility] [address] [address] Joyce Pantoja ARNP [address] [address] Health Maintenance Due Date Last Done Comments Diabetes: Hemoglobin A1C 09/06/2023 Diabetes: Ophthalmology Exam 09/06/2023 07/10/2011, 06/16/2007 Diabetes: Pedal Pulse Checked 09/06/2023 Diabetes: Sensory Foot Exam 09/06/2023 Diabetes: Visual Foot Exam 09/06/2023 Influenza Vaccine (#1) 2025 2, 08/24/2020, 07/31/2019, Additional history exists Pneumococcal Vaccine: 50+ Years Completed 03/12/2017, 05/25/2015, 05/10/2005, Additional history exists Hepatitis B Vaccine Aged Out No longe r eligible based on patient's age to complete this topic Procedures Procedure Name Priority Date/Time Associated Diagnosis Comments URINE ALBUMIN / CREATININE RATIO Routine 06/21/2025 2:06 PM EDT PROTEIN / CREATININE RATIO, URINE Routine 06/21/2025 2:06 PM EDT EXT RESULT ENTRY Routine 06/03/2025 from Last 3 Months Results * (ABNORMAL) Protein, Total, Random Urine w/Creatinine (Protein/Creat Ratio) (06/21/2025 2:06 PM EDT) Creatinine, Ur 65.8 Not Estab. mg/dL [facility] Protein, Ur 14.0 Not Estab. mg/dL [facility] Urine Protein/Creati nine Ratio 213(H) 0 - 200 mg/g creat [facility] 06/21/2025 2:06 PM EDT 06/21/2025 [facility] LAB URINE ORDERABLES Final Result Performing Organization Address City/[facility]/ZIP Co de Phone Number [employer] [facility] [address] [place] [address] * (ABNORMAL) Urine Albumin / Creatinine Ratio (06/21/2025 2:06 PM EDT) Albumin, Urine 61.4 Not Estab. ug/mL [facility] Albumin/Creatin ine Ratio 93(H) 0 - 29 mg/g [facility] Comment: Normal: 0 - 29 Moderately increased: 30 - 300 Severely increased: >300 06/21/2025 2:06 PM EDT 06/21/2025 [facility] LAB URINE ORDERABLES Final Result Performing Organization Address City/[facility] Co de Phone Number [employer] [facility] [address] [place] [address] * (ABNORMAL) EXT RESULT ENTRY (06/03/2025) Hemoglobin 11.6(A) 13.5 - 17.5 Hematocrit 33.0(A) 41.0 - 53.0 Platelets 134(A) 150 - 399 10*3/UL Sodium 140 137 - 147 Potassium 4.7 3.4 - 5.5 Chloride 109.0(A) 99.0 - 108.0 Carbon Dioxide 25 mmol/L Anion Gap 11 <=30 MMOL/L Glucose 147(A) 60 - 200 BUN 23(A) 4 - 21 mg/dL Creatinine 0.97 0.60 - 1.30 mg/dL Calcium 9.1 8.7 - 10.7 mg/dL eGFR >60 06/03/2025 Result [facility] Historical Provider LAB BLOOD ORDERABLES Catherine l Result from Last 3 Months Insurance [facility] Care Teams Residential Treatment Specialist Relationship Specialty Start Date End Date Maria Esther Moon MD [address] [place] [address] [place] [address] PCP - General Internal Medicine 08/20/24
[2025-08-16 14:40] LABS: Magnesium 1.4 mg/dL (1.6-2.6)
[2025-08-16 19:06] LABS: Microalbum/Creatinine Ratio Ur 14.8 ug/mg cr (<30)
== END 2025-08-16 11:23 | disposition home or self-care (01) ==
LOC: HO.WFDLDS 11:22
PROVIDERS: PCP Physician Assistant Medical; Visit Provider Physician Assistant Medical
DX: E11.29 Type 2 diabetes mellitus with other diabetic kidney complication (principal); E11.65 Type 2 diabetes mellitus with hyperglycemia; R80.9 Proteinuria, unspecified; E83.42 Hypomagnesemia; I10 Essential (primary) hypertension; E78.00 Pure hypercholesterolemia, unspecified; I25.10 Atherosclerotic heart disease of native coronary artery without angina pectoris; D64.9 Anemia, unspecified; G47.39 Other sleep apnea; I73.9 Peripheral vascular disease, unspecified; D69.6 Thrombocytopenia, unspecified
CPT/HCPCS: 36415; 82043; 82570; 83036; 83735

== ENCOUNTER 2025-08-20 10:58 | Outpatient (REF) | payer BC, SELFPAY ==
--- OUTSIDE RECORDS SUMMARY | 2025-08-20 12:16 | XMS_ITS | Clinical Summary ---
Author Organization [facility] Address [address] [place], [place] [phone] Phone Care Team Providers Care Pit Boss Name Role Phone Maria Esther Sage MD Primary Care Provider + [phone] Allergies No known active allergies Medications FLUoxetine [...] however patient wants to talk to primary laborer shipyard before adding. Social History Tobacco Use Types [...] Description 08/30/2025 10:45 AM EDT Office Visit [facility] [address] [place] [address] 3rd [facility], [address] [place] [address] Andrés Kirkpatrick DO 22 [facility] [address] [place] [address] Health Maintenance Due Date Last Done Comments [...] this topic Medical Devices Implanted Type Area Security Systems Sales Representative Device Identifier Shelf Expiration Date Model / [...] EDT) SODIUM 141 133 - 146 mmol/L [facility] CHLORIDE 106 96 - 108 mmol/L [facility] POTASSIUM 4.4 3.3 - 5.1 mmol/L [facility] CO2 26 21 - 35 mmol/L [facility] BUN 21(H) 6 - 19 mg/dL [facility] CREATININE 0.90 0.5 - 1.5 mg/dL [facility] GLUCOSE 195(H) 70 - 99 mg/dL [facility] CALCIUM 9.3 8.4 - 10.3 mg/dL [facility] EGFR 82 >59 mL/min/1.7 3m2 [facility] Comment:Estimated glomerular filtration rate calculated using the CKD-EPI equation. ANION GAP 13 10 - 20 mmol/L [facility] Blood 06/07/2021 8:07 AM EDT 06/07/2021 8:08 AM EDT us Andrés Kirkpatrick DO LAB BLOOD ORDERABLES Final Re sult [address] [address] from Last 3 Months or Most Recently Relevant to Health Maintenance Insurance MEDICARE PPO BLUE REPLACEMENT MEDICARE PPO BLUE [place] [address] MEDICARE PPO BLUE REPLACEMENT MEDICARE PPO BLUE REPLAC[place] [address] MEDICARE PPO BLUE REPLACEMENT MEDICARE PPO BLUE REPLACEMENT MEDICARE PPO BLUE REPLACEMENT MEDICARE PPO BLUE REPLACEMENT [place] MEDICARE PPO BLUE REPLACEMENT Advance Directives For more information, please contact: [phone] (9AM - 5PM [facility], Saturday-Saturday) * Full Code (Latest Code Status [...] signed by Dr Andrés Kirkpatrick Care Teams Pit Boss Relationship Specialty Start Date End Date Maria Esther Sage MD PCP - General Internal Medicine 08/18/21 Additional Source Comments The information contained in this document represents components of the legal health record. It is not the complete legal health record.[facility]
--- OUTSIDE RECORDS SUMMARY | 2025-08-20 12:16 | XMS_ITS | Encounter Summary ---
Author Organization [facility] Address [address] [place] [address] Phone Care Team Providers Care Green Meat Packer Name Role Phone Unknown, Unknown Primary Care Provider Maria Esther Montilla MD Primary Care Provider + [phone] Encounter Details Date Type Department Care Team (Late st Contact Info) Description 06/07/2021 Procedure Pass [facility] [address] [place] [address] Social History Tobacco Use Types Packs/Day Years [...] Description 08/30/2025 10:45 AM EDT Office Visit [facility] 22 [facility] 3rd Floor, [address] [place] [address] Andrés Kirkpatrick DO 22 [facility] [address] [place] [address] documented as of this encounter Visit Diagnoses Not on filedocumented in this encounter Care Teams Green Meat Packer Relationship Specialty Start Date End Date Unknown, Unknown, PCP - General 10/14/20 08/17/21 Maria Esther Sage MD PCP - General Internal Medicine 08/18/21 documented as of this encounter Additional Source Comments The information contained in this document represents components of the legal health record. It is not the complete legal health record.[facility]
--- OUTSIDE RECORDS SUMMARY | 2025-08-20 12:16 | XMS_ITS | Encounter Summary ---
Author Organization [facility] Address [address] [place] [address] Phone Care Team Providers Care Damage Adjuster Name Role Phone Unknown, Unknown Primary Care Provider Maria Esther Montilla MD Primary Care Provider [phone] Encounter Details Date Type Department Care Team (Late st Contact Info) Description 10/18/2020 Procedure Pass [facility] [address] [place] [address] Social History Tobacco Use Types Packs/Day Years [...] Description 08/30/2025 10:45 AM EDT Office Visit [facility] [address] [place] [address] 3rd Floor, [address] [place] [address] Andrés Kirkpatrick DO [address] [address] documented as of this encounter Visit Diagnoses Not on filedocumented in this encounter Care Teams Damage Adjuster Relationship Specialty Start Date End Date Unknown, Unknown, MD PCP - General 10/14/20 08/17/21 Maria Esther Sage MD PCP - General Internal Medicine 08/18/21 documented as of this encounter Additional Source Comments The information contained in this document represents components of the legal health record. It is not the complete legal health record.[facility]
--- OUTSIDE RECORDS SUMMARY | 2025-08-20 12:16 | XMS_ITS | Clinical Summary ---
Author Organization [facility] Address [address] [address] Phone Care Team Providers Care Wrapper Opener Name Role Phone Maria Esther Moon MD Primary Care Provider [phone] Allergies No known active allergies Medications amLODIPine [...] Visit [facility] [address] [place] [phone] Joyce Pantoja ARNP Chronic kidney disease, stage 2 (mild) (Primary Dx); Proteinuria, not otherwise specified; Benign essential hypertension; Hypomagnesemia 06/21/2025 Orders Only [facility]. [address] [facility] [address] [place] [address] Joyce Pantoja ARNP from Last 3 Months [...] Visit [facility] [address] [phone] Joyce Pantoja ARNP [address] [address] Health Maintenance Due Date Last [...] Creatinine, Ur 65.8 Not Estab. mg/dL [facility] Protein, Ur 14.0 Not Estab. mg/dL [facility] Urine Protein/Creati nine Ratio 213(H) 0 - 200 mg/g creat [facility] 06/21/2025 2:06 PM EDT 06/21/2025 [facility] LAB URINE ORDERABLES Final Result Performing Organization Address City/[facility]/ZIP Co de Phone Number [facility] [place] [facility] [address] [place] [address] * (ABNORMAL) Urine Albumin / Creatinine Ratio (06/21/2025 2:06 PM EDT) Albumin, Urine 61.4 Not Estab. ug/mL [facility] Albumin/Creatin ine Ratio 93(H) 0 - 29 mg/g [facility] Comment: Normal: 0 - 29 Moderately increased: 30 - 300 Severely increased: >300 06/21/2025 2:06 PM EDT 06/21/2025 [facility] LAB URINE ORDERABLES Final Result Performing Organization Address City/[facility] Co de Phone Number [employer] [place] [facility] [address] [place] [address] * (ABNORMAL) EXT RESULT ENTRY (06/03/2025) Hemoglobin [...] - 10.7 mg/dL eGFR >60 06/03/2025 Result [facility] Historical Provider LAB BLOOD ORDERABLES Catherine l Result from Last 3 Months Insurance [facility] Care Teams Wrapper Opener Relationship Specialty Start Date End Date Maria Esther Moon MD [address] [place] [address] [place] [id number] PCP - General Internal Medicine 08/20/24
[2025-08-20 15:22] LABS: Magnesium 1.2 mg/dL (1.6-2.6)
== END 2025-08-20 10:59 | disposition home or self-care (01) ==
LOC: HO.WFDLDS 10:58
PROVIDERS: Visit Provider Physician Assistant Medical
DX: E83.42 Hypomagnesemia (principal)
CPT/HCPCS: 36415; 83735

== ENCOUNTER 2025-08-27 11:41 | Outpatient (REF) | payer BC, SELFPAY ==
[2025-08-27 14:30] LABS: Magnesium 1.6 mg/dL (1.6-2.6)
== END 2025-08-27 11:42 | disposition home or self-care (01) ==
LOC: HO.WFDLDS 11:41
PROVIDERS: Visit Provider Physician Assistant Medical
DX: E83.42 Hypomagnesemia (principal)
CPT/HCPCS: 36415; 83735

== ENCOUNTER 2025-10-26 08:20 | Outpatient (REF) | payer MEDICARE, SELFPAY ==
--- NOTE | ~2025-10-26 | US_ITS ---
EXAMINATION: US COMPLETE ABDOMEN WITH LIVER ELASTOGRAPHY CLINICAL INFORMATION: Hepatosplenomegaly. COMPARISON: None available. TECHNIQUE: Real-time imaging of the abdominal viscera. Noninvasive ultrasound liver fibrosis assessment is performed using Siemens point quantification shear wave elastography (pSWE) with a C5-2 MHz transducer. Multiple elastography samples are obtained. FINDINGS: PANCREAS: The visualized pancreatic head and body are normal in appearance. The remainder of the pancreas is obscured from visualization by the overlying bowel gas. ABDOMINAL AORTA: No aortic aneurysm is seen. INFERIOR VENA CAVA: Visualized portions are normal. LIVER: Liver is normal in size, contour, and echogenicity. No focal lesion or biliary dilatation is present. The right lobe measures 16.9 cm in length. The left lobe measures 9.6 cm in length. Portal flow is towards the liver (hepatopetal). Shear wave liver elastography median stiffness is 1.32 m/s (reference: normal median stiffness is 1.3 m/s or less). IQR/median stiffness to assess sampling precision is 0.13 (reference: good quality data set is IQR/median stiffness of 0.30 or less). This represents a quality data set. GALLBLADDER: The gallbladder is physiologically distended without evidence of sludge, polyps, wall thickening or pericholecystic fluid. There are small intraluminal shadowing gallstones present, which are mobile. Negative sonographic Anderson's sign. COMMON BILE DUCT: Normal in caliber measuring 0.5 cm in diameter. RIGHT KIDNEY: No hydronephrosis. No renal calculi or suspicious focal parenchymal lesions. The kidney measures 11.4 cm in maximum dimension. There is a lower pole simple cyst measuring 2.7 x 2.0 x 2.2 cm. LEFT KIDNEY: No hydronephrosis. No renal calculi or suspicious focal parenchymal lesions. The kidney measures 11.7 cm in maximum dimension. There is a mid pole lateral simple cyst measuring 1.2 x 1.1 x 1.3 cm. SPLEEN: Unremarkable. The spleen measures 10.9 cm in maximum dimension. FREE FLUID: None seen. US/US abdomen comp w elastography IMPRESSION: 1. Normal-appearing liver, bile ducts, and spleen. No splenomegaly appreciated. The liver is normal in size and echogenicity. 2. Liver elastography: In the absence of other known clinical signs, measurements rule out compensated advanced chronic liver disease. If there are known clinical signs, further testing may be needed for confirmation. 3. There is cholelithiasis without evidence of gallbladder inflammation or wall thickening. 4. There are simple renal cysts bilaterally. Kidneys are otherwise normal. REFERENCE: Society of Radiologists in Ultrasound Liver Stiffness Thresholds (2019): LIVER STIFFNESS THRESHOLDS: *Liver Stiffness equal or less than 1.3 m/s: High probability of being normal. *Liver Stiffness less than 1.7 m/s: In the absence of other known clinical signs, rules out compensated advanced chronic liver disease. *Liver Stiffness 1.7-2.1 m/s: Suggestive of compensated advanced chronic liver disease but need further test for confirmation. *Liver Stiffness over 2.1 m/s: Rules in compensated advanced chronic liver disease. *Liver Stiffness over 2.4 m/s: Suggestive of clinically significant portal hypertension. QUALITY OF DATA SET: *IQR/Median value equal or less than 0.30 implies a quality data set. *IQR/Median value over 0.30 implies a poor quality data set. SIGNIFICANT CHANGE FROM PRIOR EXAM: Significant change if liver stiffness measurement is 10% or greater from prior exam. OTHER CONSIDERATIONS: The stage of liver fibrosis may be overestimated in the setting of acute hepatitis, liver inflammation, elevated liver function tests, hepatic vascular congestion, obstructive cholestasis, non-fasting state, and infiltrative diseases such as amyloidosis and lymphoma. In some patients with NAFLD, the liver stiffness thresholds for compensated advanced chronic liver disease may be lower. In causes other than viral hepatitis and NAFLD, liver stiffness thresholds are not well established. Electronically signed by: Amandeep Peck MD 10/26/2025 09:16 AM [facility]
== END 2025-10-26 08:21 | disposition home or self-care (01) ==
LOC: HO.US 08:20
PROVIDERS: PCP Physician Assistant Medical; Visit Provider Internal Medicine Medical Oncology
DX: D75.89 Other specified diseases of blood and blood-forming organs (principal); R16.2 Hepatomegaly with splenomegaly, not elsewhere classified
CPT/HCPCS: 76700; 76981

== ENCOUNTER → 2025-10-26 08:20 | Outpatient (BNV) | payer MEDICARE, SELFPAY | PROVIDERS: PCP Physician Assistant Medical; Visit Provider Radiology Diagnostic Radiology | DX: K80.20 Calculus of gallbladder without cholecystitis without obstruction (principal); N28.1 Cyst of kidney, acquired | CPT/HCPCS: 76700 ==